=== PATIENT | male | born 1940 | race Hispanic/Latino ===

== ENCOUNTER 2017-04-01 06:04 | Day surgery (SDC) | payer MEDICARE ==
[2017-04-01] MEDS ORDERED: NACL BACTERIOSTATIC INFILTRATI ONE (06:44)
[2017-04-01] MEDS ORDERED: DILAUDID ONE (07:09)
[2017-04-01] MEDS ORDERED: DIPRIVAN 10 MG/ML IV ONE (07:09)
--- NOTE | 2017-04-01 07:36 | Anesthesia Consultation ---
Anesthesia Consult and Med Hx Date of service: 04/01/17 - Airway Anesthetic Teeth Evaluation: Edentulous ROM Head & Neck: Adequate Mental/Hyoid Distance: Adequate Mallampati Class: Class I Intubation Access Assessment: Probably Good - Pulmonary Exam CTA: Yes - Cardiac Exam Cardiac Exam: RRR - Pre-Operative Health Status ASA Pre-Surgery Classification: ASA3 Proposed Anesthetic Plan: General - Pulmonary Hx Smoking: Yes (3 CIGARS PER DAY x50 yrs) COPD: Yes (ON H&P , BUT PT DENIES) Hx Sleep Apnea: No ([place] PRE SCREEN HIGH RISK) - Cardiovascular System Hx Hypertension: Yes (NO MEDS, pt denies) - Central Nervous System Hx Back Pain: Yes (CHRONIC BACK PAIN TO ROX[place] LEGS, nerve stimulator, chronic pain meds) - Endocrine Hx Renal Disease: Yes (BPH, stones, self cath for 2 weeks) Hx Liver Disease: No Hx Non-Insulin Dependent Diabetes: No - Other Systems Hx Cancer: No - Additional Comments Anesthesia Medical History Comments: Slow to wake up per pt's daughter
[2017-04-01] MEDS ORDERED: PEPCID IV NR (08:00)
[2017-04-01] MEDS ORDERED: LACTATED RINGERS 1,000 ML IV SCH (08:00)
[2017-04-01] MEDS ORDERED: ZOFRAN ONE (08:34)
[2017-04-01] MEDS ORDERED: XYLOCAINE MPF 2% ONE (08:34)
[2017-04-01] MEDS ORDERED: ROBINUL ONE (08:34)
[2017-04-01] MEDS ORDERED: ANCEF/STERILE WATER 2 GM/20 ML IV NR (09:00)
[2017-04-01] MEDS ORDERED: MORPHINE IV PRN ×2 (09:03)
[2017-04-01] MEDS ORDERED: ZOFRAN IV PRN (09:03)
--- NOTE | 2017-04-01 09:03 | Post Anesthesia Evaluation ---
- Post Anesthesia Evaluation Patient Participated: Yes Airway Patent: Yes Stable Respiratory Function: Yes Nausea/Vomiting: No Temp > 96.8F: Yes Pain Manageable: Yes Adequeate Hydration: Yes Anesthesia Complications: No Block Receding Appropriately: Not Applicable Patient on Ventilator: No
--- NOTE | 2017-04-01 09:05 | Discharge Summary ---
Short Stay Discharge Plan Activity: other (no straining ) Weight Bearing Status: Full Weight Bearing Diet: low fat, low salt Special Instructions: other (inc fluids ) Follow up with: AJIT MORRIS MD [Primary Care Provider] - 7 Days CATHRYN GANDHI MD [Staff Physician] - 14 Days
--- NOTE | 2017-04-01 09:06 | Post Operative Note ---
Date of procedure: 04/01/17 Pre-op diagnosis: hematuria Post-op diagnosis: same Findings: erythema Procedure: cysto rpgs bx Anesthesia: GETA Surgeon: CATHRYN GANDHI Estimated blood loss: none Pathology: list (bladder) Specimen disposition: to lab Condition: stable Disposition: PACU
--- NOTE | 2017-04-01 09:41 | Operative Report ---
PREOPERATIVE DIAGNOSIS: Hematuria, erythematous areas. POSTOPERATIVE DIAGNOSES: Hematuria, erythematous areas. PROCEDURE: Cystoscopy, biopsy. SURGEON: Ian Roach MD ANESTHESIA: General. FINDINGS: This is a gentleman with hematuria. He has had a previous TURP, has erythematous areas in the right side of the bladder and to the lateral aspect of the right ureteral orifice, he now presents for biopsies. DESCRIPTION OF PROCEDURE: The patient was brought to the operating room and placed on the operating table. Following induction of anesthesia, placed in the lithotomy position, prepped and draped in usual sterile fashion. Actually he was put in the lithotomy position because of his back surgery before he was put to sleep. Cystoscopy showed wide open bladder neck and erythematous areas were biopsied. These looked more inflammatory, but we wanted to be safe. The patient tolerated the procedure well. The area was cauterized. Retrograde showed J hooking right orifice with no persistent filling defects and good drainage. The patient tolerated the procedure well and brought to recovery in stable condition. JOB# [id number] JP/NAM
[2017-04-01 10:19] VITALS: BP 115/71
--- NOTE | 2017-04-02 07:37 | Fluoroscopy Report ---
RETROGRADE PYELOGRAM: History: Urinary frequency. There is adequate filling of the ureters and intrarenal collecting systems with no filling defects or anatomic abnormalities identified. History: No abnormality identified.
== END 2017-04-01 10:15 | disposition home or self-care (01) ==
LOC: OR 06:04
PROVIDERS: ATTEND Urology
DX: N30.21 Other chronic cystitis with hematuria (principal); N40.1 Benign prostatic hyperplasia with lower urinary tract symptoms; R35.0 Frequency of micturition; I10 Essential (primary) hypertension; J44.9 Chronic obstructive pulmonary disease, unspecified; M54.9 Dorsalgia, unspecified; G89.29 Other chronic pain; F41.9 Anxiety disorder, unspecified; F32.9 Major depressive disorder, single episode, unspecified; F17.210 Nicotine dependence, cigarettes, uncomplicated; Z79.899 Other long term (current) drug therapy; Z98.890 Other specified postprocedural states; Z96.643 Presence of artificial hip joint, bilateral; N32.89 Other specified disorders of bladder
CPT/HCPCS: 52204; 74420; 88305; C1758; J1170; J2405; J2704; J7120; Q9967

== ENCOUNTER 2017-04-18 17:13 | Inpatient (IN) | payer MEDICARE ==
[2017-04-18 18:11] LABS: Basophils % (Auto) 0.4 % (0.0-1.8); Eosinophils # (Auto) 0.1 K/mm3 (0.0-0.4); Eosinophils % (Auto) 0.8 % (0.0-4.3); Hematocrit 40.5 % (35.5-45.6); Hemoglobin 13.7 gm/dl (11.8-15.2); Lymphocytes # (Auto) 1.5 K/mm3 (1.2-5.4); Lymphocytes % (Auto) 21.2 % (13.4-35.0); Mean Corpuscular HGB Conc 34 % (32-34); Mean Corpuscular Hemoglobin 33 pg (28-32); Mean Corpuscular Volume 97 fl (84-94); Monocytes # (Auto) 0.5 K/mm3 (0.0-0.8); Monocytes % (Auto) 7.6 % (0.0-7.3); Platelet Count 135 K/mm3 (140-440); Red Blood Count 4.17 M/mm3 (3.65-5.03); Red Cell Distribution Width 13.8 % (13.2-15.2)
[2017-04-18 18:31] LABS: Alanine Aminotransferase 32 units/L (7-56); Albumin 4.1 g/dL (3.9-5); BUN/Creatinine Ratio 27; Blood Urea Nitrogen 19 mg/dL (9-20); Hemolysis Index 4
[2017-04-19] MEDS ORDERED: DILAUDID IV ONE (00:18)
[2017-04-19] MEDS ORDERED: NACL 0.9% 500 ML 500 ML IV ONE (00:18)
--- NOTE | 2017-04-19 00:19 | Emergency Department Report ---
ED General Adult HPI - General Chief complaint: Abdominal Pain Stated complaint: ACUTE GALLBLADDER ATTACK Time Seen by Provider: 04/18/17 23:35 Source: patient, family, RN notes reviewed, old records reviewed Mode of arrival: Wheelchair Limitations: No Limitations - History of Present Illness Initial comments: This is a 76-year-old male who was previously unknown to this provider, presents to the ER with a complaint of gallbladder infection/attack. Reports having had an outpatient CAT scan and an outpatient facility, which suggests cholecystitis by verbal report as per family. Family does not have verbal report written report with them. All the habitus of disc. Patient denies headache, neck pain, chest pain, shortness of breath, testicular pain, urinary symptoms. He has sharp right-sided abdominal pain, it increases with palpation , rest, decreases with range of motion. -: Gradual, days(s) Severity scale (0 -10): 8 Quality: aching Consistency: constant Improves with: rest Worsens with: movement Associated Symptoms: loss of appetite, malaise. denies: confusion, chest pain, cough, diaphoresis, fever/chills, headaches, rash, seizure, shortness of breath , syncope, weakness - Related Data Home Medications Medication Instructions Recorded Confirmed Last Taken Baclofen [Lioresal] 10 mg PO BID 08/14/13 04/19/17 04/01/17 clonazePAM [KlonoPIN] 1 mg PO TID 08/14/13 04/19/17 04/01/17 FLUoxetine HCL [Fluoxetine HCl] 40 mg PO DAILY 03/28/17 04/19/17 03/31/17 Pregabalin [Lyrica] 75 mg PO BID 03/28/17 04/19/17 04/01/17 fentaNYL [Fentanyl] 1 dose INTRADERMA Q72HR 03/28/17 04/19/17 04/01/17 Previous Rx's Medication Instructions Recorded Last Taken Type Methadone [Dolophine] 10 mg PO BID #20 tablet 06/13/15 04/01/17 Rx Oxycodone HCl/Acetaminophen 1 each PO Q8HR PRN #30 tablet 06/13/15 04/01/17 Rx [Percocet 10/325 mg] traZODone [Desyrel] 100 mg PO QHS #20 tablet 06/13/15 04/01/17 Rx Allergies Allergy/AdvReac Type Severity Reaction Status Date / Time No Known Allergies Allergy Verified 12/01/14 13:51 ED Review of Systems ROS: Stated complaint: ACUTE GALLBLADDER ATTACK Other details as noted in HPI Constitutional: malaise, weakness. denies: fever Eyes: denies: eye discharge ENT: denies: epistaxis Respiratory: denies: see HPI, shortness of breath Cardiovascular: denies: chest pain Gastrointestinal: abdominal pain Genitourinary: as per HPI. denies: dysuria, testicular pain Musculoskeletal: denies: myalgia Neurological: weakness Psychiatric: anxiety ED Past Medical Hx - Past Medical History Previous Medical History?: Yes Hx Hypertension: Yes (NO MEDS, pt denies) Hx Liver Disease: No Hx Renal Disease: Yes (BPH, stones, self cath for 2 weeks) Hx Arthritis: Yes Hx COPD: Yes (ON H&P , BUT PT DENIES) Hx HIV: No Additional medical history: high cholesterol. "BLOOD CLOT ON BRAIN", Prostate with polyps - Surgical History Past Surgical History?: Yes Additional Surgical History: Hip BILATERAL. BACK SURGERY X 4. TONSILLECTOMY - Social History Smoking Status: Current Every Day Smoker Substance Use Type: Prescribed - Medications Home Medications: Home Medications Medication Instructions Recorded Confirmed Last Taken Type Baclofen [Lioresal] 10 mg PO BID 08/14/13 04/19/17 04/01/17 History clonazePAM [KlonoPIN] 1 mg PO TID 08/14/13 04/19/17 04/01/17 History Methadone [Dolophine] 10 mg PO BID #20 tablet 06/13/15 04/19/17 04/01/17 Rx Oxycodone HCl/Acetaminophen 1 each PO Q8HR PRN #30 tablet 06/13/15 04/19/1703/08 Rx [Percocet 10/325 mg] traZODone [Desyrel] 100 mg PO QHS #20 tablet 06/13/15 04/19/17 04/01/17 Rx FLUoxetine HCL [Fluoxetine HCl] 40 mg PO DAILY 03/28/17 04/19/17 03/31/17 History Pregabalin [Lyrica] 75 mg PO BID 03/28/17 04/19/17 04/01/17 History fentaNYL [Fentanyl] 1 dose INTRADERMA Q72HR 03/28/17 04/19/17 04/01/17 History ED Physical Exam - General Limitations: No Limitations General appearance: alert, in no apparent distress - Head Head exam: Present: atraumatic, normocephalic - Eye Eye exam: Present: normal appearance, EOMI. Absent: nystagmus - ENT ENT exam: Present: normal exam, normal orophraynx, mucous membranes moist, normal external ear exam - Neck Neck exam: Present: normal inspection, full ROM - Respiratory Respiratory exam: Present: normal lung sounds bilaterally. Absent: respiratory distress - Cardiovascular Cardiovascular Exam: Present: regular rate, normal rhythm, normal heart sounds. Absent: systolic murmur, diastolic murmur, rubs, gallop - GI/Abdominal GI/Abdominal exam: Present: soft, tenderness, normal bowel sounds, other (right flank tenderness, right upper quadrant tenderness.). Absent: distended, guarding, rebound, rigid, pulsatile mass - Rectal Rectal exam: Present: deferred - exam: Present: normal inspection. Absent: testicular tenderness External exam: Present: normal external exam, other (there is no testicular tenderness. There is normal testicular lie bilaterally. There is normal cremasteric reflex bilaterally.). Absent: erythema, swelling, bleeding - Extremities Exam Extremities exam: Present: normal inspection, full ROM, normal capillary refill. Absent: tenderness, pedal edema, joint swelling, calf tenderness - Back Exam Back exam: Present: normal inspection, full ROM. Absent: tenderness, CVA tenderness (R), paraspinal tenderness, vertebral tenderness - Neurological Exam Neurological exam: Present: alert, CN II-XII intact, other (Extraocular movements intact. Tongue midline. No facial droop. Facial sensation intact to light touch in the V1, V2, V3 distribution bilaterally. 5 and 5 strength in 4 extremities.. Sensation is intact to light touch in 4 extremities.). Absent : motor sensory deficit - Psychiatric Psychiatric exam: Present: normal affect, normal mood - Skin Skin exam: Present: warm, dry, intact, normal color. Absent: rash ED Course Vital Signs 04/18/17 04/18/17 04/19/17 17:20 23:27 02:40 Temperature 98 F 97.6 F Pulse Rate 78 57 L Respiratory 18 18 Rate Blood Pressure 114/63 143/86 Blood Pressure 121/56 [Left] O2 Sat by Pulse 97 95 Oximetry 04/19/17 04/19/17 04/19/17 02:45 03:44 03:45 Temperature Pulse Rate 56 L 52 L Respiratory 15 14 Rate Blood Pressure 173/87 173/87 173/87 Blood Pressure [Left] O2 Sat by Pulse 95 94 Oximetry 04/19/17 04/19/17 04/19/17 03:50 04:00 04:16 Temperature Pulse Rate 50 L 50 L Respiratory 18 9 L 11 L Rate Blood Pressure 144/59 122/56 Blood Pressure [Left] O2 Sat by Pulse 94 Oximetry 04/19/17 04/19/17 04/19/17 04:30 04:46 05:00 Temperature Pulse Rate 54 L 53 L 48 L Respiratory 11 L 10 L 14 Rate Blood Pressure 123/51 123/51 123/51 Blood Pressure [Left] O2 Sat by Pulse 89 94 95 Oximetry 04/19/17 04/19/17 04/19/17 05:16 05:30 05:46 Temperature Pulse Rate 49 L 51 L 47 L Respiratory 12 15 11 L Rate Blood Pressure 127/49 131/58 131/58 Blood Pressure [Left] O2 Sat by Pulse 94 96 96 Oximetry 04/19/17 04/19/17 04/19/17 06:00 06:16 06:30 Temperature Pulse Rate 70 55 L 57 L Respiratory 23 17 22 Rate Blood Pressure 131/58 100/84 100/84 Blood Pressure [Left] O2 Sat by Pulse 90 94 93 Oximetry 04/19/17 04/19/17 04/19/17 06:46 07:00 07:16 Temperature Pulse Rate 51 L 57 L 58 L Respiratory 18 16 15 Rate Blood Pressure 131/58 131/58 148/42 Blood Pressure [Left] O2 Sat by Pulse 93 95 94 Oximetry 04/19/17 04/19/17 08:22 08:40 Temperature Pulse Rate 46 L Respiratory 18 14 Rate Blood Pressure 123/53 Blood Pressure [Left] O2 Sat by Pulse 94 Oximetry - Reevaluation(s) Reevaluation #1: 04/19/17 04:[address] scan of the abdomen and pelvis suggest cholecystitis. Case presented to the general surgeon on-call, Dr. Kim, who requests medical admission given her advanced age, medical comorbidities. Case presented to the Hospital physician, Dr Allen, who accepts the patient to the medical service. ED Medical Decision Making - Lab Data Result diagrams: 04/20/17 03:45 04/20/17 03:45 Vital Signs 04/18/17 04/18/17 17:20 23:27 Temperature 98 F 97.6 F Pulse Rate 78 57 L Respiratory 18 18 Rate Blood Pressure 114/63 Blood Pressure 121/56 [Left] O2 Sat by Pulse 97 95 Oximetry Lab Results 04/18/17 04/18/17 Range/Units 17:59 17:59 WBC 7.0 (4.5-11.0) K/mm3 RBC 4.17 (3.65-5.03) M/mm3 Hgb 13.7 (11.8-15.2) gm/dl Hct 40.5 (35.5-45.6) % MCV 97 H (84-94) fl MCH 33 H (28-32) pg MCHC 34 (32-34) % RDW 13.8 (13.2-15.2) % Plt Count 135 L (140-440) K/mm3 Lymph % (Auto) 21.2 (13.4-35.0) % [place] % (Auto) 7.6 H (0.0-7.3) % Eos % (Auto) 0.8 (0.0-4.3) % Baso % (Auto) 0.4 (0.0-1.8) % Lymph # 1.5 (1.2-5.4) K/mm3 [place] # 0.5 (0.0-0.8) K/mm3 Eos # 0.1 (0.0-0.4) K/mm3 Baso # 0.0 (0.0-0.1) K/mm3 Seg Neutrophils % 70.0 (40.0-70.0) % Seg Neutrophils # 4.9 (1.8-7.7) K/mm3 Sodium 138 (137-145) mmol/L Potassium 4.5 (3.6-5.0) mmol/L Chloride 94.8 L (98-107) mmol/L Carbon Dioxide 25 (22-30) mmol/L Anion Gap 23 mmol/L BUN 19 (9-20) mg/dL Creatinine 0.7 L (0.8-1.5) mg/dL Estimated GFR > 60 ml/min BUN/Creatinine Ratio 27 % Glucose 108 H (75-100) mg/dL Calcium 9.0 (8.4-10.2) mg/dL Total Bilirubin 1.50 H (0.1-1.2) mg/dL AST 31 (5-40) units/L ALT 32 (7-56) units/L Alkaline Phosphatase 126 (35-129) units/L Total Protein 7.1 (6.3-8.2) g/dL Albumin 4.1 (3.9-5) g/dL Albumin/Globulin Ratio 1.4 % - Radiology Data Radiology results: pending, report reviewed Referring Physician: JEANIE DE ANDA Patient Name: JOSE ALBERTO GALARZA Date of : 1940 Sex: Male Report Date: 2017-04-18 Report Status: Finalized Findings [facility] [address] [place] [address] Ultrasound Report Signed Patient: JOSE ALBERTO GALARZA MR#: [id number] : 1940 Acct:[id number] Age/Sex: 76 / M ADM Date: 04/18/17 Loc: ED Attending Dr: Ordering Physician: JEANIE DE ANDA MD Date of Service: 04/19/17 Procedure(s): US abdomen limited Accession Number(s): [id number] cc: JEANIE DE ANDA MD FINAL REPORT PROCEDURE: US ABDOMEN LIMITED TECHNIQUE: Real-time sonography in multiple planes of the gallbladder fossa and CBD with imaging of the adjacent liver, pancreas, and right kidney was performed with image documentation. CPT 30860 HISTORY: ruq pain COMPARISON: No prior studies are available for comparison. FINDINGS: Liver: Normal size and echotexture with no evidence of cystic or solid mass lesion. Gallbladder: There is cholelithiasis is. Gallbladder wall is thickened at 5.6 millimeters. There is no pericholecystic fluid.. There is a mass in the gallbladder wall measuring 2.3 centimeters. This could be sludge or irregular polyp. Neoplasm cannot be excluded. Intrahepatic bile ducts: Normal . Extrahepatic bile ducts: Common bile duct measures 7.5 millimeters in diameter.. Pancreas: Normal as visualized with suboptimal depiction of the pancreatic tail. Right kidney: Normal echotexture. No focal renal mass, calculus, or hydronephrosis. Other: No free fluid. IMPRESSION: There is cholelithiasis is. Gallbladder wall is thickened at 5.6 millimeters. There is no pericholecystic fluid.. There is a mass in the gallbladder wall measuring 2.3 centimeters. This could be sludge or irregular polyp. Neoplasm cannot be excluded. Common bile duct measures 7.5 millimeters in diameter.. Transcribed By: CO Dictated By: JACKY MALIN MD Electronically Authenticated By: JACKY MALIN MD Signed Date/Time: 04/18/172352 DD/ 52 TD/TT: 04/18/172352 - Medical Decision Making Differential diagnosis, including but not limited to: Urinary tract infection, cholecystitis, intra-abdominal infection Assessment and plan: 76-year-old male with a verbal report from family of gallbladder infection. He is afebrile with reassuring vital signs but very tender. Right upper quadrant ultrasound and CT scan of the abdomen and pelvis to my interpretation appeared to demonstrate thickened edematous gallbladder, with pericholecystic fluid. Of note, there has been a long delay and patient's disposition because the overnight radiology [facility], [place], has been backed up in their interpretations. We have contacted the group multiple times to get an interpretation and read, but they state that they are swamped. Patient will be treated empirically with Zosyn, IV fluids and pain medication. Assuming they're full report corroborates my suspicion, we will discuss with general surgery on-call. Critical care attestation.: If time is entered above; I have spent that time in minutes in the direct care of this critically ill patient, excluding procedure time. ED Disposition Clinical Impression: Cholecystitis Disposition: OP ADMIT IP TO THIS HOSP Is pt being admited?: Yes Condition: Good
[2017-04-19] MEDS ORDERED: NACL ONE (01:23)
--- NOTE | 2017-04-19 03:56 | Ultrasound Report ---
FINAL REPORT PROCEDURE: US ABDOMEN LIMITED TECHNIQUE: Real-time sonography in multiple planes of the gallbladder fossa and CBD with imaging of the adjacent liver, pancreas, and right kidney was performed with image documentation. CPT 43945 HISTORY: ruq pain COMPARISON: No prior studies are available for comparison. FINDINGS: Liver: Normal size and echotexture with no evidence of cystic or solid mass lesion. Gallbladder: There is cholelithiasis is. Gallbladder wall is thickened at 5.6 millimeters. There is no pericholecystic fluid.. There is a mass in the gallbladder wall measuring 2.3 centimeters. This could be sludge or irregular polyp. Neoplasm cannot be excluded. Intrahepatic bile ducts: Normal . Extrahepatic bile ducts: Common bile duct measures 7.5 millimeters in diameter.. Pancreas: Normal as visualized with suboptimal depiction of the pancreatic tail. Right kidney: Normal echotexture. No focal renal mass, calculus, or hydronephrosis. Other: No free fluid. IMPRESSION: There is cholelithiasis is. Gallbladder wall is thickened at 5.6 millimeters. There is no pericholecystic fluid.. There is a mass in the gallbladder wall measuring 2.3 centimeters. This could be sludge or irregular polyp. Neoplasm cannot be excluded. Common bile duct measures 7.5 millimeters in diameter..
[2017-04-19 04:01] LABS: Bilirubin,Urine NEG (Negative); Blood,Urine LG (Negative); Color,Urine Amber (Yellow); Mucus,Urine 3+ /HPF; Nitrite,Urine NEG (Negative); Urobilinogen,Urine < 2.0 mg/dL (<2.0)
[2017-04-19 04:03] LABS: WBC,Urine > 182.0 /HPF (0.0-6.0)
--- NOTE | 2017-04-19 04:09 | Cat Scan Report ---
FINAL REPORT PROCEDURE: CT ABDOMEN PELVIS W CON TECHNIQUE: Computerized axial tomography of the abdomen and pelvis was performed after the IV injection of iodinated nonionic contrast. HISTORY: abd pain COMPARISON: No prior studies are available for comparison. FINDINGS: Visualized lower thorax: No significant abnormality. Liver: Normal size and attenuation. Spleen: Normal size and attenuation. Gallbladder and biliary system: The gallbladder is distended and wall is thickened. No discrete stones are seen. Cholecystitis is suspected. Bile ducts are normal in caliber.. Pancreas: Normal. Adrenals: Normal. Kidneys: Normal. GI tract: There is thickening of the proximal duodenum suggesting duodenitis. There is no mass or obstruction. There is moderate stool in the colon. There is no colitis or diverticulitis. The appendix is normal.. Lymph nodes and mesentery: Normal. Vasculature: There is an aortic aneurysm measuring approximately 3.3 centimeters in diameter. 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 Bladder: Normal. Reproductive organs: Normal. Peritoneum: There is no ascites, free air, abscess or adenopathy.. Musculoskeletal structures: There has been extensive lower back surgery. There is hardware transfixing L3, L4 and L5 and S1. 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 The hardware is intact.. Other: None. IMPRESSION: The gallbladder is distended and wall is thickened. No discrete stones are seen. Cholecystitis is suspected. Bile ducts are normal in caliber.. There is thickening of the proximal duodenum suggesting duodenitis. There is no mass or obstruction. There is moderate stool in the colon. There is no colitis or diverticulitis. The appendix is normal.. There is an aortic aneurysm measuring approximately 3.3 centimeters in diameter. 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 There is no ascites, free air, abscess or adenopathy.. There has been extensive lower back surgery. There is hardware transfixing L3, L4 and L5 and S1. 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 The hardware is intact.
[2017-04-19] MEDS ORDERED: ZOSYN/NS 4.5GM/100ML 4.5 GM/100 ML VIAL IV ONE (04:16)
--- NOTE | 2017-04-19 06:13 | History and Physical Report ---
History of Present Illness Date of examination: 04/19/17 Chief complaint: Abdominal pain History of present illness: This is a 76-year-old male with history of COPD and chronic back pain on pain stimulator, methadone, Baclofen and Oxycodone who was brought to the ED with a complaint of gallbladder infection/attack. Reports having had an outpatient CAT scan and an outpatient facility, which suggests cholecystitis by verbal report as per family. Family does not have verbal report written report with them. All the of disc. Patient denies headache, neck pain, chest pain, shortness of breath, testicular pain, urinary symptoms. He has sharp right- sided abdominal pain, it increases with palpation, rest, decreases with range of motion. Past History Past Medical History: arthritis, COPD, hypertension, other ( high cholesterol. "BLOOD CLOT ON BRAIN", Prostate with polyps, BPH, stones, self cath for 2 weeks) Past Surgical History: Other (Hip BILATERAL. BACK SURGERY X 4. TONSILLECTOMY) Social history: smoking, full code. denies: alcohol abuse Family history: no significant family history Medications and Allergies Allergies Allergy/AdvReac Type Severity Reaction Status Date / Time No Known Allergies Allergy Verified 12/01/14 13:51 Home Medications Medication Instructions Recorded Confirmed Last Taken Type Baclofen [Lioresal] 10 mg PO BID 08/14/13 04/19/17 04/01/17 History clonazePAM [KlonoPIN] 1 mg PO TID 08/14/13 04/19/17 04/01/17 History Methadone [Dolophine] 10 mg PO BID #20 tablet 06/13/15 04/19/17 04/01/17 Rx Oxycodone HCl/Acetaminophen 1 each PO Q8HR PRN #30 tablet 06/13/15 04/19/1703/08 Rx [Percocet 10/325 mg] traZODone [Desyrel] 100 mg PO QHS #20 tablet 06/13/15 04/19/17 04/01/17 Rx FLUoxetine HCL [Fluoxetine HCl] 40 mg PO DAILY 03/28/17 04/19/17 03/31/17 History Pregabalin [Lyrica] 75 mg PO BID 03/28/17 04/19/17 04/01/17 History fentaNYL [Fentanyl] 1 dose INTRADERMA Q72HR 03/28/17 04/19/17 04/01/17 History Review of Systems All systems: negative (loss of appetite, malaise. denies: confusion, chest pain , cough, diaphoresis, fever/chills, headaches, rash, seizure, shortness of breath, syncope, weakness) Exam - Physical Exam Narrative exam: General: the patient is awake alert oriented to time place and person. no evidence of acute distress HEENT: Head is atraumatic normocephalic,. Pupils equal round reactive to light and accommodation, extraocular movements intact. Oral mucosa moist. Oropharynx clear. No pharyngeal erythema or tonsillar exudate. Neck: Supple no JVD no thyromegaly or lymphadenopathy. Heart: Regular rate and rhythm no murmurs or gallops. S1 and S2 normal. PMI not displaced. Lungs: Clear to auscultation bilaterally. No rales rhonchi wheezing. Nonlabored breathing. Normal chest wall expansion. Abdomen: soft, moderate right upper quadrant tenderness, right flank tenderness , no guarding, rebound, rigidity, pulsatile mass Normoactive bowel sounds. No hepatosplenomegaly. No abdominal masses or bruit appreciated. Extremities: No cyanosis/clubbing/ edema. Musculoskeletal: Normal range of movement all joints. No obvious deformity or tenderness to palpation. Normal muscle tone. Back: Normal alignment. No step-off. No midline or paraspinal tenderness. No CVA tenderness. Neurological: Grossly intact and nonfocal. No cerebellar signs. Cranial nerves II-12 grossly intact. Strength 5 out of 5 all 4 extremities. Sensations grossly intact. Skin: Warm and dry no rashes or bruises. Psychiatric: Normal mood. Appropriate affect and good insight and judgment. Vascular system: No lymphadenopathy. Distal pulses 2+ bilaterally. - Constitutional Vitals: Temp Pulse Resp BP Pulse Ox 97.6 F 51 L 15 131/58 96 04/18/17 23:27 04/19/17 05:30 04/19/17 05:30 04/19/17 05:30 04/19/17 05:30 Results - Labs CBC & Chem 7: 04/18/17 17:59 04/18/17 17:59 Labs: Laboratory Last Values WBC 7.0 K/mm3 (4.5-11.0) 04/18/17 17:59 RBC 4.17 M/mm3 (3.65-5.03) 04/18/17 17:59 Hgb 13.7 gm/dl (11.8-15.2) 04/18/17 17:59 Hct 40.5 % (35.5-45.6) 04/18/17 17:59 MCV 97 fl (84-94) H 04/18/17 17:59 MCH 33 pg (28-32) H 04/18/17 17:59 MCHC 34 % (32-34) 04/18/17 17:59 RDW 13.8 % (13.2-15.2) 04/18/17 17:59 Plt Count 135 K/mm3 (140-440) L 04/18/17 17:59 Lymph % (Auto) 21.2 % (13.4-35.0) 04/18/17 17:59 [place] % (Auto) 7.6 % (0.0-7.3) H 04/18/17 17:59 Eos % (Auto) 0.8 % (0.0-4.3) 04/18/17 17:59 Baso % (Auto) 0.4 % (0.0-1.8) 04/18/17 17:59 Lymph # 1.5 K/mm3 (1.2-5.4) 04/18/17 17:59 [place] # 0.5 K/mm3 (0.0-0.8) 04/18/17 17:59 Eos # 0.1 K/mm3 (0.0-0.4) 04/18/17 17:59 Baso # 0.0 K/mm3 (0.0-0.1) 04/18/17 17:59 Seg Neutrophils % 70.0 % (40.0-70.0) 04/18/17 17:59 Seg Neutrophils # 4.9 K/mm3 (1.8-7.7) 04/18/17 17:59 Sodium 138 mmol/L (137-145) 04/18/17 17:59 Potassium 4.5 mmol/L (3.6-5.0) 04/18/17 17:59 Chloride 94.8 mmol/L (98-107) L 04/18/17 17:59 Carbon Dioxide 25 mmol/L (22-30) 04/18/17 17:59 Anion Gap 23 mmol/L 04/18/17 17:59 BUN 19 mg/dL (9-20) 04/18/17 17:59 Creatinine 0.7 mg/dL (0.8-1.5) L 04/18/17 17:59 Estimated GFR > 60 ml/min 04/18/17 17:59 BUN/Creatinine Ratio 27 % 04/18/17 17:59 Glucose 108 mg/dL (75-100) H 04/18/17 17:59 Calcium 9.0 mg/dL (8.4-10.2) 04/18/17 17:59 Total Bilirubin 1.50 mg/dL (0.1-1.2) H 04/18/17 17:59 AST 31 units/L (5-40) 04/18/17 17:59 ALT 32 units/L (7-56) 04/18/17 17:59 Alkaline Phosphatase 126 units/L (35-129) 04/18/17 17:59 Total Protein 7.1 g/dL (6.3-8.2) 04/18/17 17:59 Albumin 4.1 g/dL (3.9-5) 04/18/17 17:59 Albumin/Globulin Ratio 1.4 % 04/18/17 17:59 Urine Color Gale (Yellow) 04/19/17 00:48 Urine Turbidity Slightly-cloudy (Clear) 04/19/17 00:48 Urine pH 5.0 (5.0-7.0) 04/19/17 00:48 Ur Specific [place] 1.021 (1.003-1.030) 04/19/17 00:48 Urine Protein 30 mg/dl mg/dL (Negative) 04/19/17 00:48 Urine Glucose (UA) Neg mg/dL (Negative) 04/19/17 00:48 Urine Ketones Neg mg/dL (Negative) 04/19/17 00:48 Urine Blood Lg (Negative) 04/19/17 00:48 Urine Nitrite Neg (Negative) 04/19/17 00:48 Urine Bilirubin Neg (Negative) 04/19/17 00:48 Urine Urobilinogen < 2.0 mg/dL (<2.0) 04/19/17 00:48 Ur Leukocyte Esterase Lg (Negative) 04/19/17 00:48 Urine WBC (Auto) > 182.0 /HPF (0.0-6.0) H 04/19/17 00:48 Urine RBC (Auto) 23.0 /HPF (0.0-6.0) 04/19/17 00:48 Urine Mucus 3+ /HPF 04/19/17 00:48 - Imaging and Cardiology Imaging and Cardiology: CT abdomen and pelvis with contrast suggestive of cystitis, aortic aneurysm at 3.3 cm Ultrasound showing gallbladder wall thickened at 5.6 cm no pericholecystic fluid sludge in the gallbladder Assessment and Plan Assessment and plan: Assessment and plan - * Acute cholecystitis * Hyperbilirubinemia * Hypertension * COPD * Constipation * Duodenitis Plan - Admit the patient to medical surgical floor with telemetry Nothing by mouth Gen. surgery consulted for further evaluation and management Empiric antibiotics in the form of Levaquin Continue home medications When necessary bronchodilators, monitor patient for COPD exacerbation. IV steroids and aggressive bronchodilators if needed for COPD exacerbation Monitor CBC and electrolytes Replace electrolytes when necessary as per protocol DVT GI prophylaxis as ordered Monitor and follow the patient closely Tobacco abuse counselled on smoking cessation VTE prophylaxis?: Chemical, Mechanical Plan of care discussed with patient/family: Yes
[2017-04-19] MEDS ORDERED: ZOFRAN IV PRN (06:24)
[2017-04-19] MEDS ORDERED: DULCOLAX PR PRN (06:24)
[2017-04-19] MEDS ORDERED: MILK OF MAGNESIA PO PRN (06:24)
[2017-04-19] MEDS ORDERED: PROVENTIL IH PRN (06:24)
[2017-04-19] MEDS ORDERED: TYLENOL PO PRN (06:24)
[2017-04-19 07:06] LABS: Basophils % (Auto) 0.7 % (0.0-1.8); Eosinophils # (Auto) 0.1 K/mm3 (0.0-0.4); Eosinophils % (Auto) 2.4 % (0.0-4.3); Hematocrit 38.8 % (35.5-45.6); Hemoglobin 12.6 gm/dl (11.8-15.2); Lymphocytes # (Auto) 1.4 K/mm3 (1.2-5.4); Lymphocytes % (Auto) 26.5 % (13.4-35.0); Mean Corpuscular HGB Conc 33 % (32-34); Mean Corpuscular Hemoglobin 32 pg (28-32); Mean Corpuscular Volume 99 fl (84-94); Monocytes # (Auto) 0.6 K/mm3 (0.0-0.8); Monocytes % (Auto) 10.6 % (0.0-7.3); Platelet Count 107 K/mm3 (140-440); Red Blood Count 3.92 M/mm3 (3.65-5.03); Red Cell Distribution Width 13.9 % (13.2-15.2)
[2017-04-19] MEDS ORDERED: ATIVAN IV PRN (07:30)
--- NOTE | 2017-04-19 07:33 | Event Note ---
Date: 04/19/17 Admitting today Pt seen and examined. Daughter Jeanette at bedside. Apr 01, 2017, Dr. Roach did bladder bx to remove polyp, noncancerous per family. Patient started experience n/v and RLQ abd pains and went to see Dr. Roach yesterday. CTap ordered. Dr. Roach called his cell phone and told him to go to ED because of his gallbladder. Patient being treated for acute cholecystitis. On exam, RLQ +mann sign and very tender; therefore, I cancelled all oral medications, pt should be strict NPO. Which I changed oral clonazepam to iv ativan for anxiety, Stopped oral methadone/baclofen/prozac/ lyrica/oxycodone, pt already on iv morphine. Await surgery recommendation. Continue iv abx and bowel rest, ivf.
[2017-04-19 07:43] LABS: Alanine Aminotransferase 18 units/L (7-56); Albumin 3.3 g/dL (3.9-5); BUN/Creatinine Ratio 20; Blood Urea Nitrogen 16 mg/dL (9-20); Calcium 8.5 mg/dL (8.4-10.2); Chol/HDL Ratio 3.51 %; HDL Cholesterol 35 mg/dL (40-59); Hemolysis Index 15; LDL Cholesterol,Direct 71 mg/dL (50-130)
[2017-04-19] MEDS ORDERED: MORPHINE ONE (07:43)
[2017-04-19] MEDS: MORPHINE IV PRN ×4 (08:22→23:18)
[2017-04-19] MEDS ORDERED: DOLOPHINE PO SCH (10:00)
[2017-04-19] MEDS ORDERED: DURAGESIC TD SCH (10:00)
[2017-04-19] MEDS ORDERED: LOVENOX SUB-Q SCH (10:00)
[2017-04-19] MEDS ORDERED: LYRICA PO SCH (10:00)
[2017-04-19] MEDS ORDERED: PROzac PO SCH (10:00)
[2017-04-19] MEDS ORDERED: LIORESAL PO SCH (10:00)
[2017-04-19] MEDS: D5NS 1,000 ML IV SCH ×2 (10:57→20:12)
--- NOTE | 2017-04-19 14:06 | Progress Note ---
Assessment and Plan Full consult dictated. History of Present Illness Date of examination: 04/19/17 Chief complaint: Abdominal pain History of present illness: This is a 76-year-old male with history of COPD and chronic back pain on pain stimulator, methadone, Baclofen and Oxycodone who was brought to the ED with a complaint of gallbladder infection/attack. Reports having had an outpatient CAT scan and an outpatient facility, which suggests cholecystitis by verbal report as per family. Family does not have verbal report written report with them. All the of disc. Patient denies headache, neck pain, chest pain, shortness of breath, testicular pain, urinary symptoms. He has sharp right- sided abdominal pain, it increases with palpation, rest, decreases with range of motion. Past History Past Medical History: arthritis, COPD, hypertension, other ( high cholesterol. "BLOOD CLOT ON BRAIN", Prostate with polyps, BPH, stones, self cath for 2 weeks) Past Surgical History: Other (Hip BILATERAL. BACK SURGERY X 4. TONSILLECTOMY) Social history: smoking, full code. denies: alcohol abuse Family history: no significant family history r/o acute GB rec - NPO IV antibiotics will folllow Selected Entries 04/19/17 09:41 Temperature 98.5 F Pulse Rate 48 L Respiratory 16 Rate Blood Pressure 135/54 Laboratory Tests 04/19/17 04/19/17 06:48 06:48 WBC 5.2 Hgb 12.6 Hct 38.8 Sodium 139 Potassium 4.0 Chloride 99.0 Carbon Dioxide 25 BUN 16 Creatinine 0.8 Total Bilirubin 1.70 H AST 20 ALT 18 Alkaline Phosphatase 104 Objective Vital Signs - 12hr 04/19/17 04/19/17 04/19/17 02:40 02:45 03:44 Temperature Pulse Rate 56 L Respiratory 15 Rate Blood Pressure 143/86 173/87 173/87 O2 Sat by Pulse 95 Oximetry 04/19/17 04/19/17 04/19/17 03:45 03:50 04:00 Temperature Pulse Rate 52 L 50 L Respiratory 14 18 9 L Rate Blood Pressure 173/87 144/59 O2 Sat by Pulse 94 Oximetry 04/19/17 04/19/17 04/19/17 04:16 04:30 04:46 Temperature Pulse Rate 50 L 54 L 53 L Respiratory 11 L 11 L 10 L Rate Blood Pressure 122/56 123/51 123/51 O2 Sat by Pulse 94 89 94 Oximetry 04/19/17 04/19/17 04/19/17 05:00 05:16 05:30 Temperature Pulse Rate 48 L 49 L 51 L Respiratory 14 12 15 Rate Blood Pressure 123/51 127/49 131/58 O2 Sat by Pulse 95 94 96 Oximetry 04/19/17 04/19/17 04/19/17 05:46 06:00 06:16 Temperature Pulse Rate 47 L 70 55 L Respiratory 11 L 23 17 Rate Blood Pressure 131/58 131/58 100/84 O2 Sat by Pulse 96 90 94 Oximetry 04/19/17 04/19/17 04/19/17 06:30 06:46 07:00 Temperature Pulse Rate 57 L 51 L 57 L Respiratory 22 18 16 Rate Blood Pressure 100/84 131/58 131/58 O2 Sat by Pulse 93 93 95 Oximetry 04/19/17 04/19/17 04/19/17 07:16 08:22 08:40 Temperature Pulse Rate 58 L 46 L Respiratory 15 18 14 Rate Blood Pressure 148/42 123/53 O2 Sat by Pulse 94 94 Oximetry 04/19/17 09:41 Temperature 98.5 F Pulse Rate 48 L Respiratory 16 Rate Blood Pressure 135/54 O2 Sat by Pulse 96 Oximetry - Labs 04/19/17 06:48 04/19/17 06:48 Diabetes panel 04/18/17 04/19/17 04/19/17 Range/Units 17:59 06:48 06:48 Sodium 138 139 (137-145) mmol/L Potassium 4.5 4.0 (3.6-5.0) mmol/L Chloride 94.8 L 99.0 (98-107) mmol/L Carbon Dioxide 25 25 (22-30) mmol/L BUN 19 16 (9-20) mg/dL Creatinine 0.7 L 0.8 (0.8-1.5) mg/dL Glucose 108 H 89 (75-100) mg/dL Hemoglobin A1c 5.4 (4-6) % Calcium 9.0 8.5 (8.4-10.2) mg/dL AST 31 20 (5-40) units/L ALT 32 18 (7-56) units/L Alkaline Phosphatase 126 104 (35-129) units/L Total Protein 7.1 6.7 (6.3-8.2) g/dL Albumin 4.1 3.3 L (3.9-5) g/dL Triglycerides 86 (2-149) mg/dL HDL Cholesterol 35 L (40-59) mg/dL Calcium panel 04/18/17 04/19/17 Range/Units 17:59 06:48 Calcium 9.0 8.5 (8.4-10.2) mg/dL Albumin 4.1 3.3 L (3.9-5) g/dL Pituitary panel 04/18/17 04/19/17 Range/Units 17:59 06:48 Sodium 138 139 (137-145) mmol/L Potassium 4.5 4.0 (3.6-5.0) mmol/L Chloride 94.8 L 99.0 (98-107) mmol/L Carbon Dioxide 25 25 (22-30) mmol/L BUN 19 16 (9-20) mg/dL Creatinine 0.7 L 0.8 (0.8-1.5) mg/dL Glucose 108 H 89 (75-100) mg/dL Calcium 9.0 8.5 (8.4-10.2) mg/dL Adrenal panel 04/18/17 04/19/17 Range/Units 17:59 06:48 Sodium 138 139 (137-145) mmol/L Potassium 4.5 4.0 (3.6-5.0) mmol/L Chloride 94.8 L 99.0 (98-107) mmol/L Carbon Dioxide 25 25 (22-30) mmol/L BUN 19 16 (9-20) mg/dL Creatinine 0.7 L 0.8 (0.8-1.5) mg/dL Glucose 108 H 89 (75-100) mg/dL Calcium 9.0 8.5 (8.4-10.2) mg/dL Total Bilirubin 1.50 H 1.70 H (0.1-1.2) mg/dL AST 31 20 (5-40) units/L ALT 32 18 (7-56) units/L Alkaline Phosphatase 126 104 (35-129) units/L Total Protein 7.1 6.7 (6.3-8.2) g/dL Albumin 4.1 3.3 L (3.9-5) g/dL
[2017-04-19] MEDS: ZOSYN/NS 4.5GM/100ML 4.5 GM/100 ML VIAL IV SCH ×2 (15:30→22:13)
[2017-04-19] MEDS ORDERED: DESYREL PO SCH (22:00)
[2017-04-19] MEDS: PEPCID IV SCH (22:13)
[2017-04-20] MEDS: MORPHINE IV PRN ×5 (04:26→22:21)
[2017-04-20 04:43] LABS: Basophils % (Auto) 0.7 % (0.0-1.8); Eosinophils # (Auto) 0.2 K/mm3 (0.0-0.4); Eosinophils % (Auto) 3.6 % (0.0-4.3); Hematocrit 35.7 % (35.5-45.6); Lymphocytes # (Auto) 1.4 K/mm3 (1.2-5.4); Lymphocytes % (Auto) 31.2 % (13.4-35.0); Mean Corpuscular HGB Conc 34 % (32-34); Mean Corpuscular Hemoglobin 33 pg (28-32); Mean Corpuscular Volume 98 fl (84-94); Monocytes # (Auto) 0.3 K/mm3 (0.0-0.8); Monocytes % (Auto) 7.4 % (0.0-7.3); Platelet Count 124 K/mm3 (140-440); Red Blood Count 3.64 M/mm3 (3.65-5.03); Red Cell Distribution Width 13.4 % (13.2-15.2)
[2017-04-20 05:05] LABS: Alanine Aminotransferase 14 units/L (7-56); Albumin 2.9 g/dL (3.9-5); BUN/Creatinine Ratio 14; Blood Urea Nitrogen 10 mg/dL (9-20); Calcium 8.1 mg/dL (8.4-10.2); Hemolysis Index 66; Lipase 24 units/L (13-60)
--- NOTE | 2017-04-20 05:07 | Consultation ---
REASON FOR CONSULTATION: Rule out acute cholecystitis. HISTORY OF PRESENT ILLNESS: The patient is a 76-year-old gentleman, who presented to Emergency Room with right upper quadrant abdominal pain, accompanied by nausea and vomiting and states he is now. PAST MEDICAL HISTORY: Pertinent for chronic back pain as well as history of kidney stones. PAST SURGICAL HISTORY: Status post four back surgeries. Also, bilateral hip replacements and lithotripsy for kidney stones as well as T and A. ALLERGIES: No known allergies. MEDICATIONS: Include oxycodone, Klonopin and others. FAMILY HISTORY: Breast cancer. SOCIAL HISTORY: Quit drinking approximately 40 years ago. Smokes half a pack a day for approximately 53 years. REVIEW OF SYSTEMS: Noncontributory. PHYSICAL EXAMINATION: GENERAL: At this time reveals the patient to be awake, alert, cooperative, in mild discomfort, but no acute distress. HEENT: Pupils are equal and reactive to light and accommodation. Sclerae are nonicteric. ABDOMEN: Examination of the abdomen reveals mild right upper quadrant tenderness. No rebound or guarding noted at this time. Bowel sounds are present, somewhat hypoactive. LABORATORY DATA: Lab work at present includes CBC, which shows white count of 5.2, H and H is 12.6 and 38.8. Electrolytes are essentially within normal limits. LFTs are also within normal limits including an AST of 20, ALT of 18 and alkaline phosphatase of 104. Total bilirubin is just slightly elevated at 1.7. Amylase and lipase are not on chart. CT scan and gallbladder ultrasound have been performed, which I have reviewed with the radiologist. A gallbladder ultrasound shows some gallstones and the gallbladder wall is slightly thickened at 5.6 mm, but no pericholecystic fluid is described. Essentially, cholelithiasis with borderline possible cholecystitis. CT scan shows once again a slightly distended gallbladder with thickened wall, possibly some mild duodenitis and also confirmation of the patient's extensive back surgery. IMPRESSION: At this time is that of a 76-year-old gentleman, rule out acute cholecystitis. RECOMMENDATIONS: Keep the patient n.p.o. at present. Continue the IV Zosyn as you are doing. We will repeat lab work in the morning including CBC, CMP, amylase and lipase and we will monitor with you clinically. Thank you very much for consultation. JOB# [id number] FP/NTS
[2017-04-20] MEDS: D5NS 1,000 ML IV SCH ×2 (05:59→15:57)
[2017-04-20] MEDS: ZOSYN/NS 4.5GM/100ML 4.5 GM/100 ML VIAL IV SCH ×3 (06:29→22:20)
[2017-04-20] MEDS: PEPCID IV SCH (09:32)
--- NOTE | 2017-04-20 11:30 | Progress Note ---
Assessment and Plan Assessment and plan: Patient is 76-year-old man with history of hypertension, dyslipidemia, arthritis , COPD, BPH, self bladder catheterization 2 weeks, severe chronic low back pain status post 4 back surgeries with a nonfunctional stimulator implantated in his back and tobacco dependency who presents with right lower side abdominal pains and prior nausea vomiting. Apr 01, 2017, Dr. Roach did bladder bx to remove polyp, noncancerous per family. Patient started experience n/v and RLQ abd pains and went to see Dr. Roach yesterday. CTap ordered. Dr. Roach called his cell phone and told him to go to ED because of his gallbladder. Patient being treated for acute cholecystitis. On exam, RLQ +mann sign and very tender; therefore, I cancelled all oral medications, pt should be strict NPO. Which I changed oral clonazepam to iv ativan for anxiety, Stopped oral methadone/baclofen/prozac/lyrica/oxycodone, pt already on iv morphine. Await surgery recommendation. Continue iv abx and bowel rest, ivf. 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 Abdominal ultrasound report is cholelithiasis, gallbladder wall thickening. 6 mm, there is no pericholecystic fluid, there is a mass in the gallbladder wall measuring 2.3 cm, this could be sludge or irregular polyp, neoplasm cannot be excluded, common bowel duct measures 7.5 mm in diameter. 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 Surgeon is following History Interval history: Patient was seen and examined. Follow-up on current diagnosis/abdominal pain which is much better and no nausea vomiting. Overnight uneventful. Patient denies any chest pain, shortness breath, nausea/vomiting or severe headaches. Imaging, nursing note, chart, labs and old chart reviewed. Discussed with patient. Hospitalist Physical - Physical exam Narrative exam: GEN: WDWN, NAD, AWAKE, ALERT, ORIENTATED HEENT: NCAT, EOMI, PERRL, OP Clear NECK: supple, no adenopathy, no thyromegaly, no JVD CVS/HEART: RRR, NORMAL S1S2, NO JVD, pulses present bilaterally CHEST/LUNGS: CTA B, Symmetrical chest expansion, good air entry bilaterally GI/Abdomen: soft, nondistended, right lower quadrant abdominal tenderness is resolving, good bowel sounds, no guarding or rebound /Bladder: no suprapubic tenderness, no CVA or paraspinal tenderness EXT/Skin: no c/c/e, no obvious rash MSK: FROM x 4 Neuro: CN 2-12 grossly intact, no new focal deficits Psych: calm - Constitutional Vitals: Temp Pulse Resp BP Pulse Ox 98.0 F 41 L 18 137/47 98 04/20/17 07:41 04/20/17 07:41 04/20/17 07:41 04/20/17 07:41 04/20/17 09:09 Results - Labs CBC & Chem 7: 04/20/17 03:45 04/20/17 03:45 Labs: Laboratory Last Values WBC 4.4 K/mm3 (4.5-11.0) L 04/20/17 03:45 RBC 3.64 M/mm3 (3.65-5.03) L 04/20/17 03:45 Hgb 12.0 gm/dl (11.8-15.2) 04/20/17 03:45 Hct 35.7 % (35.5-45.6) 04/20/17 03:45 MCV 98 fl (84-94) H 04/20/17 03:45 MCH 33 pg (28-32) H 04/20/17 03:45 MCHC 34 % (32-34) 04/20/17 03:45 RDW 13.4 % (13.2-15.2) 04/20/17 03:45 Plt Count 124 K/mm3 (140-440) L 04/20/17 03:45 Lymph % (Auto) 31.2 % (13.4-35.0) 04/20/17 03:45 [place] % (Auto) 7.4 % (0.0-7.3) H 04/20/17 03:45 Eos % (Auto) 3.6 % (0.0-4.3) 04/20/17 03:45 Baso % (Auto) 0.7 % (0.0-1.8) 04/20/17 03:45 Lymph # 1.4 K/mm3 (1.2-5.4) 04/20/17 03:45 [place] # 0.3 K/mm3 (0.0-0.8) 04/20/17 03:45 Eos # 0.2 K/mm3 (0.0-0.4) 04/20/17 03:45 Baso # 0.0 K/mm3 (0.0-0.1) 04/20/17 03:45 Seg Neutrophils % 57.1 % (40.0-70.0) 04/20/17 03:45 Seg Neutrophils # 2.5 K/mm3 (1.8-7.7) 04/20/17 03:45 Sodium 140 mmol/L (137-145) 04/20/17 03:45 Potassium 4.2 mmol/L (3.6-5.0) 04/20/17 03:45 Chloride 103.2 mmol/L (98-107) 04/20/17 03:45 Carbon Dioxide 26 mmol/L (22-30) 04/20/17 03:45 Anion Gap 15 mmol/L 04/20/17 03:45 BUN 10 mg/dL (9-20) 04/20/17 03:45 Creatinine 0.7 mg/dL (0.8-1.5) L 04/20/17 03:45 Estimated GFR > 60 ml/min 04/20/17 03:45 BUN/Creatinine Ratio 14 % 04/20/17 03:45 Glucose 122 mg/dL (75-100) H 04/20/17 03:45 Hemoglobin A1c 5.4 % (4-6) 04/19/17 06:48 Calcium 8.1 mg/dL (8.4-10.2) L 04/20/17 03:45 Total Bilirubin 1.00 mg/dL (0.1-1.2) 04/20/17 03:45 AST 20 units/L (5-40) 04/20/17 03:45 ALT 14 units/L (7-56) 04/20/17 03:45 Alkaline Phosphatase 95 units/L (35-129) 04/20/17 03:45 Total Protein 6.0 g/dL (6.3-8.2) L 04/20/17 03:45 Albumin 2.9 g/dL (3.9-5) L 04/20/17 03:45 Albumin/Globulin Ratio 0.9 % 04/20/17 03:45 Triglycerides 86 mg/dL (2-149) 04/19/17 06:48 Cholesterol 123 mg/dL (50-199) 04/19/17 06:48 LDL Cholesterol Direct 71 mg/dL (50-130) 04/19/17 06:48 HDL Cholesterol 35 mg/dL (40-59) L 04/19/17 06:48 Cholesterol/HDL Ratio 3.51 % 04/19/17 06:48 Amylase 42 units/L (27-131) 04/20/17 03:45 Lipase 24 units/L (13-60) 04/20/17 03:45 Urine Color Gale (Yellow) 04/19/17 00:48 Urine Turbidity Slightly-cloudy (Clear) 04/19/17 00:48 Urine pH 5.0 (5.0-7.0) 04/19/17 00:48 Ur Specific [place] 1.021 (1.003-1.030) 04/19/17 00:48 Urine Protein 30 mg/dl mg/dL (Negative) 04/19/17 00:48 Urine Glucose (UA) Neg mg/dL (Negative) 04/19/17 00:48 Urine Ketones Neg mg/dL (Negative) 04/19/17 00:48 Urine Blood Lg (Negative) 04/19/17 00:48 Urine Nitrite Neg (Negative) 04/19/17 00:48 Urine Bilirubin Neg (Negative) 04/19/17 00:48 Urine Urobilinogen < 2.0 mg/dL (<2.0) 04/19/17 00:48 Ur Leukocyte Esterase Lg (Negative) 04/19/17 00:48 Urine WBC (Auto) > 182.0 /HPF (0.0-6.0) H 04/19/17 00:48 Urine RBC (Auto) 23.0 /HPF (0.0-6.0) 04/19/17 00:48 Urine Mucus 3+ /HPF 04/19/17 00:48
--- NOTE | 2017-04-20 11:56 | Progress Note ---
Assessment and Plan Pt states "feeling better" minimal pain Abd soft. wbc 4.4 LFT's down to wnl bradycardia? surgically stable will attempt low fat cl liq diet Selected Entries 04/20/17 07:41 Temperature 98.0 F Pulse Rate 41 L Respiratory 18 Rate Blood Pressure 137/47 Laboratory Tests 04/19/17 04/19/17 04/20/17 06:48 06:48 03:45 WBC 5.2 4.4 L Hgb 12.0 Hct 35.7 Sodium Potassium Chloride Carbon Dioxide Anion Gap BUN Creatinine Total Bilirubin 1.70 H AST ALT Alkaline Phosphatase Amylase Lipase 04/20/17 03:45 WBC Hgb Hct Sodium 140 Potassium 4.2 Chloride 103.2 Carbon Dioxide 26 Anion Gap 15 BUN 10 Creatinine 0.7 L Total Bilirubin 1.00 AST 20 ALT 14 Alkaline Phosphatase 95 Amylase 42 Lipase 24 Objective Vital Signs - 12hr 04/20/17 04/20/17 04/20/17 00:01 04:23 04:26 Temperature 97.8 F 98.5 F Pulse Rate 41 L 44 L Respiratory 18 18 18 Rate Blood Pressure 119/47 126/47 O2 Sat by Pulse 98 98 Oximetry 04/20/17 04/20/17 04/20/17 04:56 07:41 09:09 Temperature 98.0 F Pulse Rate 41 L Respiratory 18 18 Rate Blood Pressure 137/47 O2 Sat by Pulse 96 98 Oximetry - Labs 04/20/17 03:45 04/20/17 03:45 Diabetes panel 04/20/17 Range/Units 03:45 Sodium 140 (137-145) mmol/L Potassium 4.2 (3.6-5.0) mmol/L Chloride 103.2 (98-107) mmol/L Carbon Dioxide 26 (22-30) mmol/L BUN 10 (9-20) mg/dL Creatinine 0.7 L (0.8-1.5) mg/dL Glucose 122 H (75-100) mg/dL Calcium 8.1 L (8.4-10.2) mg/dL AST 20 (5-40) units/L ALT 14 (7-56) units/L Alkaline Phosphatase 95 (35-129) units/L Total Protein 6.0 L (6.3-8.2) g/dL Albumin 2.9 L (3.9-5) g/dL Calcium panel 04/20/17 Range/Units 03:45 Calcium 8.1 L (8.4-10.2) mg/dL Albumin 2.9 L (3.9-5) g/dL Pituitary panel 04/20/17 Range/Units 03:45 Sodium 140 (137-145) mmol/L Potassium 4.2 (3.6-5.0) mmol/L Chloride 103.2 (98-107) mmol/L Carbon Dioxide 26 (22-30) mmol/L BUN 10 (9-20) mg/dL Creatinine 0.7 L (0.8-1.5) mg/dL Glucose 122 H (75-100) mg/dL Calcium 8.1 L (8.4-10.2) mg/dL Adrenal panel 04/20/17 Range/Units 03:45 Sodium 140 (137-145) mmol/L Potassium 4.2 (3.6-5.0) mmol/L Chloride 103.2 (98-107) mmol/L Carbon Dioxide 26 (22-30) mmol/L BUN 10 (9-20) mg/dL Creatinine 0.7 L (0.8-1.5) mg/dL Glucose 122 H (75-100) mg/dL Calcium 8.1 L (8.4-10.2) mg/dL Total Bilirubin 1.00 (0.1-1.2) mg/dL AST 20 (5-40) units/L ALT 14 (7-56) units/L Alkaline Phosphatase 95 (35-129) units/L Total Protein 6.0 L (6.3-8.2) g/dL Albumin 2.9 L (3.9-5) g/dL
[2017-04-20] MEDS: PROTONIX IV SCH (15:57)
[2017-04-20] MEDS: HEPARIN SUB-Q SCH ×2 (16:03→22:21)
[2017-04-21 05:33] LABS: Hematocrit 33.5 % (35.5-45.6); Hemoglobin 11.3 gm/dl (11.8-15.2); Mean Corpuscular HGB Conc 34 % (32-34); Mean Corpuscular Hemoglobin 33 pg (28-32); Mean Corpuscular Volume 98 fl (84-94); Platelet Count 106 K/mm3 (140-440); Red Blood Count 3.41 M/mm3 (3.65-5.03); Red Cell Distribution Width 13.6 % (13.2-15.2)
[2017-04-21 05:50] LABS: BUN/Creatinine Ratio 9; Blood Urea Nitrogen 6 mg/dL (9-20); Hemolysis Index 45
[2017-04-21] MEDS: HEPARIN SUB-Q SCH (06:15)
[2017-04-21] MEDS: ZOSYN/NS 4.5GM/100ML 4.5 GM/100 ML VIAL IV SCH ×3 (06:40→23:01)
[2017-04-21] MEDS: MORPHINE IV PRN (06:41)
[2017-04-21] MEDS ORDERED: MIRALAX 3350 PO PRN (10:00)
[2017-04-21] MEDS: PROTONIX IV SCH (10:02)
[2017-04-21] MEDS: D5NS 1,000 ML IV SCH ×2 (11:25→20:52)
--- NOTE | 2017-04-21 11:41 | Consultation ---
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 Vastus surgery was consulted for those findings. Patient is a smoker that quit 2 weeks ago. This is first time she was diagnosed with AAA. He did not have any symptoms of claudication, however she is a chronic back pain and hip pain person with no long distance walking. Past History Past Medical History: arthritis, COPD, hypertension, other ( high cholesterol. "BLOOD CLOT ON BRAIN", Prostate with polyps, BPH, stones, self cath for 2 weeks) Past Surgical History: Other (Hip BILATERAL. BACK SURGERY X 4. TONSILLECTOMY) Social history: smoking, full code. denies: alcohol abuse Family history: no significant family history Medications and Allergies Allergies Allergy/AdvReac Type Severity Reaction Status Date / Time No Known Allergies Allergy Verified 12/01/14 13:51 Home Medications Medication Instructions Recorded Confirmed Last Taken Type Baclofen [Lioresal] 10 mg PO BID 08/14/13 04/19/17 04/01/17 History clonazePAM [KlonoPIN] 1 mg PO TID 08/14/13 04/19/17 04/01/17 History Methadone [Dolophine] 10 mg PO BID #20 tablet 06/13/15 04/19/17 04/01/17 Rx Oxycodone HCl/Acetaminophen 1 each PO Q8HR PRN #30 tablet 06/13/15 04/19/1703/08 Rx [Percocet 10/325 mg] traZODone [Desyrel] 100 mg PO QHS #20 tablet 06/13/15 04/19/17 04/01/17 Rx FLUoxetine HCL [Fluoxetine HCl] 40 mg PO DAILY 03/28/17 04/19/17 03/31/17 History Pregabalin [Lyrica] 75 mg PO BID 03/28/17 04/19/17 04/01/17 History fentaNYL [Fentanyl] 1 dose INTRADERMA Q72HR 03/28/17 04/19/17 04/01/17 History Active Meds: Active Medications Albuterol (Proventil) 2.5 mg IH Q3HRT PRN PRN Reason: Shortness Of Breath Fentanyl (Duragesic) 75 mcg TD Q72HR [facility] Last Admin: 04/19/17 11:37 Dose: 75 mcg Dextrose/Sodium Chloride (D5ns) 1,000 mls @ 125 mls/hr IV DIRECT GEENA Last Admin: 04/21/17 11:25 Dose: 125 mls/hr Piperacillin Sod/Tazobactam Sod (Zosyn/Ns 4.5gm/100ml) 4.5 gm in 100 mls @ 200 mls/hr IV Q8HR GEENA PRN Reason: Protocol Last Admin: 04/21/17 06:40 Dose: 200 mls/hr Lorazepam (Ativan) 1 mg IV Q4H PRN PRN Reason: Anxiety Morphine Sulfate (Morphine) 2 mg IV Q4H PRN PRN Reason: Pain, Moderate (4-6) Last Admin: 04/21/17 06:41 Dose: 2 mg Pantoprazole Sodium (Protonix) 40 mg IV QDAY [facility] Last Admin: 04/21/17 10:02 Dose: 40 mg Polyethylene Glycol (Miralax 3350) 17 gm PO QDAY PRN PRN Reason: Constipation Review of Systems All systems: negative Exam - Constitutional Vitals: Temp Pulse Resp BP Pulse Ox 97.5 F L 38 L 20 166/54 97 04/21/17 09:07 04/21/17 09:07 04/21/17 09:07 04/21/17 09:07 04/21/17 09:07 - Cardiovascular Rhythm: regular Heart Sounds: Present: S1 & S2 Peripheral Pulses: within normal limits (no palpable right femoral pulse) Results - Labs CBC & Chem 7: 04/21/17 05:09 04/21/17 05:09 Labs: Abnormal lab results 04/21/17 04/21/17 Range/Units 05:09 05:09 WBC 3.7 L (4.5-11.0) K/mm3 RBC 3.41 L (3.65-5.03) M/mm3 Hgb 11.3 L (11.8-15.2) gm/dl Hct 33.5 L (35.5-45.6) % MCV 98 H (84-94) fl MCH 33 H (28-32) pg Plt Count 106 L (140-440) K/mm3 Chloride 107.7 H (98-107) mmol/L BUN 6 L (9-20) mg/dL Creatinine 0.7 L (0.8-1.5) mg/dL Calcium 8.0 L (8.4-10.2) mg/dL Assessment and Plan 3. 3 cm AAA and right common and external iliac occlusion Patient is asymptomatic, no history of claudication, no leg pain No repair of AAA needed at this point, however patient needs yearly monitoring with ultrasound versus CTA There is no vascular intervention needed at this time for iliac occlusion as he is asymptomatic. Patient may proceed with cholecystectomy if deemed necessary by general surgery. We'll follow up patient in our office after discharge.
--- NOTE | 2017-04-21 12:31 | Progress Note ---
Assessment and Plan Pt states feeling better. keith cl liq. changed his mind and wishes to proceed with cholecystectomy Abd soft, minimal RUQ tenderness at this time advance to low fat full liq diet. will proceed with lap GB probable open GB tues if medically cleared Selected Entries 04/20/17 04/21/17 04/21/17 22:00 07:43 09:07 Temperature 97.5 F L Pulse Rate [ 52 L Apical] Respiratory 18 Rate Blood Pressure 166/54 Laboratory Tests 04/21/17 04/21/17 05:09 05:09 WBC 3.7 L Hgb 11.3 L Hct 33.5 L Sodium 142 Potassium 4.2 Chloride 107.7 H Carbon Dioxide 24 BUN 6 L Creatinine 0.7 L Objective Vital Signs - 12hr 04/21/17 04/21/17 04/21/17 00:40 03:44 07:43 Temperature 97.8 F 97.7 F Pulse Rate 39 L 39 L Respiratory 20 20 18 Rate Blood Pressure 127/45 137/50 152/44 O2 Sat by Pulse 96 96 Oximetry 04/21/17 09:07 Temperature 97.5 F L Pulse Rate 38 L Respiratory 20 Rate Blood Pressure 166/54 O2 Sat by Pulse 97 Oximetry - Labs 04/21/17 05:09 04/21/17 05:09 Diabetes panel 04/21/17 Range/Units 05:09 Sodium 142 (137-145) mmol/L Potassium 4.2 (3.6-5.0) mmol/L Chloride 107.7 H (98-107) mmol/L Carbon Dioxide 24 (22-30) mmol/L BUN 6 L (9-20) mg/dL Creatinine 0.7 L (0.8-1.5) mg/dL Glucose 100 (75-100) mg/dL Calcium 8.0 L (8.4-10.2) mg/dL Calcium panel 04/21/17 Range/Units 05:09 Calcium 8.0 L (8.4-10.2) mg/dL Pituitary panel 04/21/17 Range/Units 05:09 Sodium 142 (137-145) mmol/L Potassium 4.2 (3.6-5.0) mmol/L Chloride 107.7 H (98-107) mmol/L Carbon Dioxide 24 (22-30) mmol/L BUN 6 L (9-20) mg/dL Creatinine 0.7 L (0.8-1.5) mg/dL Glucose 100 (75-100) mg/dL Calcium 8.0 L (8.4-10.2) mg/dL Adrenal panel 04/21/17 Range/Units 05:09 Sodium 142 (137-145) mmol/L Potassium 4.2 (3.6-5.0) mmol/L Chloride 107.7 H (98-107) mmol/L Carbon Dioxide 24 (22-30) mmol/L BUN 6 L (9-20) mg/dL Creatinine 0.7 L (0.8-1.5) mg/dL Glucose 100 (75-100) mg/dL Calcium 8.0 L (8.4-10.2) mg/dL
--- NOTE | 2017-04-21 15:59 | Progress Note ---
Assessment and Plan Assessment and plan: Patient is 76-year-old man with history of hypertension, dyslipidemia, arthritis , COPD, BPH, self bladder catheterization 2 weeks, severe chronic low back pain status post 4 back surgeries with a nonfunctional stimulator implantated in his back and tobacco dependency who presents with right lower side abdominal pains and prior nausea vomiting. Apr 01, 2017, Dr. Roach did bladder bx to remove polyp, noncancerous per family. Patient started experience n/v and RLQ abd pains and went to see Dr. Roach yesterday. CTap ordered. Dr. Roach called his cell phone and told him to go to ED because of his gallbladder. Patient being treated for acute cholecystitis. On exam, RLQ +mann sign and very tender; therefore, I cancelled all oral medications, pt should be strict NPO. Which I changed oral clonazepam to iv ativan for anxiety, Stopped oral methadone/baclofen/prozac/lyrica/oxycodone, pt already on iv morphine. Await surgery recommendation. Continue iv abx and bowel rest, ivf. 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 Abdominal ultrasound report is cholelithiasis, gallbladder wall thickening. 6 mm, there is no pericholecystic fluid, there is a mass in the gallbladder wall measuring 2.3 cm, this could be sludge or irregular polyp, neoplasm cannot be excluded, common bowel duct measures 7.5 mm in diameter. 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 Surgeon is following History Interval history: Patient was seen and examined. Follow-up on current diagnosis/abdominal pain which is much better and no nausea vomiting. Overnight uneventful. Patient denies any chest pain, shortness breath, nausea/vomiting or severe headaches. Imaging, nursing note, chart, labs and old chart reviewed. Discussed with patient. Hospitalist Physical - Physical exam Narrative exam: GEN: WDWN, NAD, AWAKE, ALERT, ORIENTATED HEENT: NCAT, EOMI, PERRL, OP Clear NECK: supple, no adenopathy, no thyromegaly, no JVD CVS/HEART: RRR, NORMAL S1S2, NO JVD, pulses present bilaterally CHEST/LUNGS: CTA B, Symmetrical chest expansion, good air entry bilaterally GI/Abdomen: soft, nondistended, right lower quadrant abdominal tenderness is resolving, good bowel sounds, no guarding or rebound /Bladder: no suprapubic tenderness, no CVA or paraspinal tenderness EXT/Skin: no c/c/e, no obvious rash MSK: FROM x 4 Neuro: CN 2-12 grossly intact, no new focal deficits Psych: calm - Constitutional Vitals: Temp Pulse Resp BP Pulse Ox 98.4 F 42 L 18 161/57 98 04/21/17 13:38 04/21/17 13:38 04/21/17 13:38 04/21/17 13:38 04/21/17 13:38 Results - Labs CBC & Chem 7: 04/21/17 05:09 04/21/17 05:09 Labs: Laboratory Last Values WBC 3.7 K/mm3 (4.5-11.0) L 04/21/17 05:09 RBC 3.41 M/mm3 (3.65-5.03) L 04/21/17 05:09 Hgb 11.3 gm/dl (11.8-15.2) L 04/21/17 05:09 Hct 33.5 % (35.5-45.6) L 04/21/17 05:09 MCV 98 fl (84-94) H 04/21/17 05:09 MCH 33 pg (28-32) H 04/21/17 05:09 MCHC 34 % (32-34) 04/21/17 05:09 RDW 13.6 % (13.2-15.2) 04/21/17 05:09 Plt Count 106 K/mm3 (140-440) L 04/21/17 05:09 Lymph % (Auto) 31.2 % (13.4-35.0) 04/20/17 03:45 [place] % (Auto) 7.4 % (0.0-7.3) H 04/20/17 03:45 Eos % (Auto) 3.6 % (0.0-4.3) 04/20/17 03:45 Baso % (Auto) 0.7 % (0.0-1.8) 04/20/17 03:45 Lymph # 1.4 K/mm3 (1.2-5.4) 04/20/17 03:45 Terrell # 0.3 K/mm3 (0.0-0.8) 04/20/17 03:45 Eos # 0.2 K/mm3 (0.0-0.4) 04/20/17 03:45 Baso # 0.0 K/mm3 (0.0-0.1) 04/20/17 03:45 Seg Neutrophils % 57.1 % (40.0-70.0) 04/20/17 03:45 Seg Neutrophils # 2.5 K/mm3 (1.8-7.7) 04/20/17 03:45 Sodium 142 mmol/L (137-145) 04/21/17 05:09 Potassium 4.2 mmol/L (3.6-5.0) 04/21/17 05:09 Chloride 107.7 mmol/L (98-107) H 04/21/17 05:09 Carbon Dioxide 24 mmol/L (22-30) 04/21/17 05:09 Anion Gap 15 mmol/L 04/21/17 05:09 BUN 6 mg/dL (9-20) L 04/21/17 05:09 Creatinine 0.7 mg/dL (0.8-1.5) L 04/21/17 05:09 Estimated GFR > 60 ml/min 04/21/17 05:09 BUN/Creatinine Ratio 9 % 04/21/17 05:09 Glucose 100 mg/dL (75-100) 04/21/17 05:09 Hemoglobin A1c 5.4 % (4-6) 04/19/17 06:48 Calcium 8.0 mg/dL (8.4-10.2) L 04/21/17 05:09 Total Bilirubin 1.00 mg/dL (0.1-1.2) 04/20/17 03:45 AST 20 units/L (5-40) 04/20/17 03:45 ALT 14 units/L (7-56) 04/20/17 03:45 Alkaline Phosphatase 95 units/L (35-129) 04/20/17 03:45 Total Protein 6.0 g/dL (6.3-8.2) L 04/20/17 03:45 Albumin 2.9 g/dL (3.9-5) L 04/20/17 03:45 Albumin/Globulin Ratio 0.9 % 04/20/17 03:45 Triglycerides 86 mg/dL (2-149) 04/19/17 06:48 Cholesterol 123 mg/dL (50-199) 04/19/17 06:48 LDL Cholesterol Direct 71 mg/dL (50-130) 04/19/17 06:48 HDL Cholesterol 35 mg/dL (40-59) L 04/19/17 06:48 Cholesterol/HDL Ratio 3.51 % 04/19/17 06:48 Amylase 42 units/L (27-131) 04/20/17 03:45 Lipase 24 units/L (13-60) 04/20/17 03:45 Urine Color Gale (Yellow) 04/19/17 00:48 Urine Turbidity Slightly-cloudy (Clear) 04/19/17 00:48 Urine pH 5.0 (5.0-7.0) 04/19/17 00:48 Ur Specific [place] 1.021 (1.003-1.030) 04/19/17 00:48 Urine Protein 30 mg/dl mg/dL (Negative) 04/19/17 00:48 Urine Glucose (UA) Neg mg/dL (Negative) 04/19/17 00:48 Urine Ketones Neg mg/dL (Negative) 04/19/17 00:48 Urine Blood Lg (Negative) 04/19/17 00:48 Urine Nitrite Neg (Negative) 04/19/17 00:48 Urine Bilirubin Neg (Negative) 04/19/17 00:48 Urine Urobilinogen < 2.0 mg/dL (<2.0) 04/19/17 00:48 Ur Leukocyte Esterase Lg (Negative) 04/19/17 00:48 Urine WBC (Auto) > 182.0 /HPF (0.0-6.0) H 04/19/17 00:48 Urine RBC (Auto) 23.0 /HPF (0.0-6.0) 04/19/17 00:48 Urine Mucus 3+ /HPF 04/19/17 00:48
[2017-04-21] MEDS: PERCOCET 5/325 PO PRN ×2 (16:21→22:56)
[2017-04-21] MEDS: LYRICA PO SCH ×2 (20:50→23:00)
[2017-04-21] MEDS: LIORESAL PO SCH ×2 (20:50→23:00)
[2017-04-22] MEDS: PERCOCET 5/325 PO PRN ×3 (05:21→23:50)
[2017-04-22] MEDS: ZOSYN/NS 4.5GM/100ML 4.5 GM/100 ML VIAL IV SCH ×3 (05:21→21:25)
[2017-04-22] MEDS: D5NS 1,000 ML IV SCH ×3 (05:22→21:26)
[2017-04-22] MEDS: PROTONIX IV SCH (09:15)
[2017-04-22] MEDS: LIORESAL PO SCH ×2 (09:18→21:26)
[2017-04-22] MEDS: LYRICA PO SCH ×2 (09:19→21:26)
[2017-04-22] MEDS: PROzac PO SCH (11:06)
--- NOTE | 2017-04-22 12:43 | Progress Note ---
Assessment and Plan Pt feeling well. no specific compl. Abd exam status quo risk, indications & compl reviewed for lap GB in am probable open pending medical clearance consent signed Selected Entries 04/21/17 04/22/17 20:07 10:00 Temperature 97.8 F Pulse Rate 44 L O2 Sat by Pulse 98 Oximetry Blood Pressure 136/46 Objective Vital Signs - 12hr 04/22/17 10:00 Respiratory 18 Rate O2 Sat by Pulse 98 Oximetry - Labs 04/21/17 05:09 04/21/17 05:09
--- NOTE | 2017-04-22 12:49 | Progress Note ---
Assessment and Plan Assessment and plan: Patient is 76-year-old man with history of hypertension, dyslipidemia, arthritis , COPD, BPH, self bladder catheterization 2 weeks, severe chronic low back pain status post 4 back surgeries with a nonfunctional stimulator implantated in his back and tobacco dependency who presents with right lower side abdominal pains and prior nausea vomiting. Apr 01, 2017, Dr. Roach did bladder bx to remove polyp, noncancerous per family. Patient started experience n/v and RLQ abd pains and went to see Dr. Roach yesterday. CTap ordered. Dr. Roach called his cell phone and told him to go to ED because of his gallbladder. Patient being treated for acute cholecystitis. On exam, RLQ +mann sign and very tender; therefore, I cancelled all oral medications, pt should be strict NPO. Which I changed oral clonazepam to iv ativan for anxiety, Stopped oral methadone/baclofen/prozac/lyrica/oxycodone, pt already on iv morphine. Await surgery recommendation. Continue iv abx and bowel rest, ivf. 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 Abdominal ultrasound report is cholelithiasis, gallbladder wall thickening. 6 mm, there is no pericholecystic fluid, there is a mass in the gallbladder wall measuring 2.3 cm, this could be sludge or irregular polyp, neoplasm cannot be excluded, common bowel duct measures 7.5 mm in diameter. -Acute gallstone cholecystitis: Treat with IV antibiotics, IV fluids, IV narcotics, bowel rest, general surgery is following -UTI, present on admission with self-catheterization and recent surgery: Treat with IV antibiotics, urine culture ordered===>E. 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 Surgeon is following 04/22/2017: pancytopenia most likely from iv zosyn, can switch to levaquin or rocephin. Moderate risk and ok from internal medicine standpoint to proceed with Cholecystectomy d/w Dr. Dm Stanton, whom I placed on consult. Echo can be done after. History Interval history: Patient was seen and examined. Follow-up on current diagnosis/abdominal pain which is much better and no nausea vomiting. Overnight uneventful. Patient denies any chest pain, shortness breath, nausea/vomiting or severe headaches. Imaging, nursing note, chart, labs and old chart reviewed. Discussed with patient. Hospitalist Physical - Physical exam Narrative exam: GEN: WDWN, NAD, AWAKE, ALERT, ORIENTATED HEENT: NCAT, EOMI, PERRL, OP Clear NECK: supple, no adenopathy, no thyromegaly, no JVD CVS/HEART: RRR, NORMAL S1S2, NO JVD, pulses present bilaterally CHEST/LUNGS: CTA B, Symmetrical chest expansion, good air entry bilaterally GI/Abdomen: soft, nondistended, right lower quadrant abdominal tenderness is resolving, good bowel sounds, no guarding or rebound /Bladder: no suprapubic tenderness, no CVA or paraspinal tenderness EXT/Skin: no c/c/e, no obvious rash MSK: FROM x 4 Neuro: CN 2-12 grossly intact, no new focal deficits Psych: calm - Constitutional Vitals: Temp Pulse Resp BP Pulse Ox 97.8 F 44 L 18 136/46 98 04/21/17 20:07 04/21/17 20:07 04/22/17 10:00 04/21/17 20:07 04/22/17 10:00 Results - Labs CBC & Chem 7: 04/21/17 05:09 04/21/17 05:09 Labs: Laboratory Last Values WBC 3.7 K/mm3 (4.5-11.0) L 04/21/17 05:09 RBC 3.41 M/mm3 (3.65-5.03) L 04/21/17 05:09 Hgb 11.3 gm/dl (11.8-15.2) L 04/21/17 05:09 Hct 33.5 % (35.5-45.6) L 04/21/17 05:09 MCV 98 fl (84-94) H 04/21/17 05:09 MCH 33 pg (28-32) H 04/21/17 05:09 MCHC 34 % (32-34) 04/21/17 05:09 RDW 13.6 % (13.2-15.2) 04/21/17 05:09 Plt Count 106 K/mm3 (140-440) L 04/21/17 05:09 Lymph % (Auto) 31.2 % (13.4-35.0) 04/20/17 03:45 [place] % (Auto) 7.4 % (0.0-7.3) H 04/20/17 03:45 Eos % (Auto) 3.6 % (0.0-4.3) 04/20/17 03:45 Baso % (Auto) 0.7 % (0.0-1.8) 04/20/17 03:45 Lymph # 1.4 K/mm3 (1.2-5.4) 04/20/17 03:45 [place] # 0.3 K/mm3 (0.0-0.8) 04/20/17 03:45 Eos # 0.2 K/mm3 (0.0-0.4) 04/20/17 03:45 Baso # 0.0 K/mm3 (0.0-0.1) 04/20/17 03:45 Seg Neutrophils % 57.1 % (40.0-70.0) 04/20/17 03:45 Seg Neutrophils # 2.5 K/mm3 (1.8-7.7) 04/20/17 03:45 Sodium 142 mmol/L (137-145) 04/21/17 05:09 Potassium 4.2 mmol/L (3.6-5.0) 04/21/17 05:09 Chloride 107.7 mmol/L (98-107) H 04/21/17 05:09 Carbon Dioxide 24 mmol/L (22-30) 04/21/17 05:09 Anion Gap 15 mmol/L 04/21/17 05:09 BUN 6 mg/dL (9-20) L 04/21/17 05:09 Creatinine 0.7 mg/dL (0.8-1.5) L 04/21/17 05:09 Estimated GFR > 60 ml/min 04/21/17 05:09 BUN/Creatinine Ratio 9 % 04/21/17 05:09 Glucose 100 mg/dL (75-100) 04/21/17 05:09 Hemoglobin A1c 5.4 % (4-6) 04/19/17 06:48 Calcium 8.0 mg/dL (8.4-10.2) L 04/21/17 05:09 Total Bilirubin 1.00 mg/dL (0.1-1.2) 04/20/17 03:45 AST 20 units/L (5-40) 04/20/17 03:45 ALT 14 units/L (7-56) 04/20/17 03:45 Alkaline Phosphatase 95 units/L (35-129) 04/20/17 03:45 Total Protein 6.0 g/dL (6.3-8.2) L 04/20/17 03:45 Albumin 2.9 g/dL (3.9-5) L 04/20/17 03:45 Albumin/Globulin Ratio 0.9 % 04/20/17 03:45 Triglycerides 86 mg/dL (2-149) 04/19/17 06:48 Cholesterol 123 mg/dL (50-199) 04/19/17 06:48 LDL Cholesterol Direct 71 mg/dL (50-130) 04/19/17 06:48 HDL Cholesterol 35 mg/dL (40-59) L 04/19/17 06:48 Cholesterol/HDL Ratio 3.51 % 04/19/17 06:48 Amylase 42 units/L (27-131) 04/20/17 03:45 Lipase 24 units/L (13-60) 04/20/17 03:45 Urine Color Gale (Yellow) 04/19/17 00:48 Urine Turbidity Slightly-cloudy (Clear) 04/19/17 00:48 Urine pH 5.0 (5.0-7.0) 04/19/17 00:48 Ur Specific D [place] 1.021 (1.003-1.030) 04/19/17 00:48 Urine Protein 30 mg/dl mg/dL (Negative) 04/19/17 00:48 Urine Glucose (UA) Neg mg/dL (Negative) 04/19/17 00:48 Urine Ketones Neg mg/dL (Negative) 04/19/17 00:48 Urine Blood Lg (Negative) 04/19/17 00:48 Urine Nitrite Neg (Negative) 04/19/17 00:48 Urine Bilirubin Neg (Negative) 04/19/17 00:48 Urine Urobilinogen < 2.0 mg/dL (<2.0) 04/19/17 00:48 Ur Leukocyte Esterase Lg (Negative) 04/19/17 00:48 Urine WBC (Auto) > 182.0 /HPF (0.0-6.0) H 04/19/17 00:48 Urine RBC (Auto) 23.0 /HPF (0.0-6.0) 04/19/17 00:48 Urine Mucus 3+ /HPF 04/19/17 00:48
--- NOTE | 2017-04-23 02:06 | Consultation ---
HISTORY OF PRESENT ILLNESS: The patient is a 76-year-old gentleman admitted with abdominal pain. An outpatient CT scan apparently suggested cholecystitis. The patient has been admitted and he developed sinus bradycardia and hence the cardiac evaluation. The patient has history of hypertension and hyperlipidemia. No previous history of myocardial infarction or congestive heart failure. At present, he denies any chest pain. The patient had cardiac catheterization. The patient is known to have chronic obstructive pulmonary disease and significant back problems and has been under pain management. The patient has been seen by General Surgery and the plan is possible cholecystectomy tomorrow. The patient denies any chest pain to suggest angina pectoris. REVIEW OF SYSTEMS: HEAD, EYES, EARS, NOSE AND THROAT: No symptoms. ENDOCRINE: No history of diabetes. GASTROINTESTINAL: No abdominal pain, nausea, or vomiting. Bowel habits have been regular. Complains about abdominal pain, diagnosed to have cholecystitis and scheduled for surgery. GENITOURINARY: History of urinary tract infection. CENTRAL NERVOUS SYSTEM: No symptoms. PHYSICAL EXAMINATION: GENERAL: Adult gentleman, well built and nourished, in no acute distress at this time. VITAL SIGNS: Blood pressure 136/46, pulse 44, respirations 18. HEAD, EYES, EAR, NOSE AND THROAT: Unremarkable. NECK: Supple. No thyromegaly. Both carotids are palpable and equal. Neck veins are flat. CHEST: Symmetrical. LUNGS: Essentially clear. CARDIOVASCULAR: S1 and S2 are heard well. No S3. No significant murmurs are present. ABDOMEN: Soft. Right upper quadrant tenderness is present. EXTREMITIES: No significant edema or calf tenderness. LABORATORY DATA: EKG is pending. Rhythm strips show sinus bradycardia with narrow QRS complexes. WBC 3.7, hemoglobin 11.3, hematocrit 33.5, platelet count gradually reduced from 135 to 106, sodium 142, potassium 4.2. Total cholesterol 123, LDL 71, HDL 35. IMPRESSION: 1. Possible acute cholecystitis. 2. Sinus bradycardia. 3. Degenerative joint disease with significant back pain with multiple pain medications. The patient is seen for cardiac evaluation prior to cholecystectomy because of bradycardia. The patient does have sinus bradycardia. PLAN: The plan at this time is to obtain an EKG and echocardiogram for further cardiac evaluation. The patient apparently had no significant coronary artery disease in the past. Plan at this time is continued current management and will review the EKG and echo once done. At present, cardiac status appears to be stable. We will follow closely with you. Thank you, Dr. Hunt, for allowing me to participate in the care of this gentleman. JOB# [id number] MURPHY/NTS
[2017-04-23] MEDS: ZOSYN/NS 4.5GM/100ML 4.5 GM/100 ML VIAL IV SCH ×3 (06:02→22:00)
--- NOTE | 2017-04-23 08:32 | Anesthesia Consultation ---
Anesthesia Consult and Med Hx Date of service: 04/23/17 - Airway Anesthetic Teeth Evaluation: Edentulous ROM Head & Neck: Adequate Mental/Hyoid Distance: Adequate Mallampati Class: Class I Intubation Access Assessment: Good - Pre-Operative Health Status ASA Pre-Surgery Classification: ASA3 Proposed Anesthetic Plan: General - Pulmonary Hx Smoking: Yes (3 CIGARS PER DAY 1/2 pack cigarettes per day x50 yrs) COPD: Yes (ON H&P , BUT PT DENIES) Hx Sleep Apnea: No ([place] PRE SCREEN HIGH RISK) - Cardiovascular System Hx Hypertension: Yes (NO MEDS, pt denies) - Central Nervous System Hx Back Pain: Yes (CHRONIC BACK PAIN TO ROXANA LEGS, nerve stimulator, chronic pain meds) - Endocrine Hx Renal Disease: Yes (BPH, stones, self cath for 2 weeks) Hx Liver Disease: No Hx Non-Insulin Dependent Diabetes: No - Other Systems Hx Cancer: No - Additional Comments Anesthesia Medical History Comments: Multpile procedures with no complications. Pt. states that he was told that he has an aortic aneurysm that will not be affected by this surgery.
--- NOTE | 2017-04-23 09:59 | Progress Note ---
Assessment and Plan Assessment and plan: Patient is 76-year-old man with history of hypertension, dyslipidemia, arthritis , COPD, BPH, self bladder catheterization 2 weeks, severe chronic low back pain status post 4 back surgeries with a nonfunctional stimulator implantated in his back and tobacco dependency who presents with right lower side abdominal pains and prior nausea vomiting. Apr 01, 2017, Dr. Roach did bladder bx to remove polyp, noncancerous per family. Patient started experience n/v and RLQ abd pains and went to see Dr. Roach yesterday. CTap ordered. Dr. Roach called his cell phone and told him to go to ED because of his gallbladder. Patient being treated for acute cholecystitis. On exam, RLQ +mann sign and very tender; therefore, I cancelled all oral medications, pt should be strict NPO. Which I changed oral clonazepam to iv ativan for anxiety, Stopped oral methadone/baclofen/prozac/lyrica/oxycodone, pt already on iv morphine. Await surgery recommendation. Continue iv abx and bowel rest, ivf. 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 Abdominal ultrasound report is cholelithiasis, gallbladder wall thickening. 6 mm, there is no pericholecystic fluid, there is a mass in the gallbladder wall measuring 2.3 cm, this could be sludge or irregular polyp, neoplasm cannot be excluded, common bowel duct measures 7.5 mm in diameter. -Acute gallstone cholecystitis: Treat with IV antibiotics, IV fluids, IV narcotics, bowel rest, general surgery is following -UTI, present on admission with self-catheterization and recent surgery: Treat with IV antibiotics, urine culture ordered===>E. 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 Surgeon is following 04/22/2017: pancytopenia most likely from iv zosyn, can switch to levaquin or rocephin. Moderate risk and ok from internal medicine standpoint to proceed with Cholecystectomy d/w Dr. Dm Stanton, whom I placed on consult. 04/23/2017: Surgery today. Echo ordered since 04/21/17, cardiology to review. History Interval history: Patient was seen and examined. Follow-up on current diagnosis/abdominal pain which is much better and no nausea vomiting. Overnight uneventful. Patient denies any chest pain, shortness breath, nausea/vomiting or severe headaches. Imaging, nursing note, chart, labs and old chart reviewed. Discussed with patient. Hospitalist Physical - Physical exam Narrative exam: GEN: WDWN, NAD, AWAKE, ALERT, ORIENTATED HEENT: NCAT, EOMI, PERRL, OP Clear NECK: supple, no adenopathy, no thyromegaly, no JVD CVS/HEART: RRR, NORMAL S1S2, NO JVD, pulses present bilaterally CHEST/LUNGS: CTA B, Symmetrical chest expansion, good air entry bilaterally GI/Abdomen: soft, nondistended, right lower quadrant abdominal tenderness is resolving, good bowel sounds, no guarding or rebound /Bladder: no suprapubic tenderness, no CVA or paraspinal tenderness EXT/Skin: no c/c/e, no obvious rash MSK: FROM x 4 Neuro: CN 2-12 grossly intact, no new focal deficits Psych: calm - Constitutional Vitals: Temp Pulse Resp BP Pulse Ox 98.1 F 45 L 18 151/66 94 04/23/17 07:45 04/23/17 07:45 04/23/17 07:45 04/23/17 07:45 04/23/17 07:45 Results - Labs CBC & Chem 7: 04/21/17 05:09 04/21/17 05:09 Labs: Laboratory Last Values WBC 3.7 K/mm3 (4.5-11.0) L 04/21/17 05:09 RBC 3.41 M/mm3 (3.65-5.03) L 04/21/17 05:09 Hgb 11.3 gm/dl (11.8-15.2) L 04/21/17 05:09 Hct 33.5 % (35.5-45.6) L 04/21/17 05:09 MCV 98 fl (84-94) H 04/21/17 05:09 MCH 33 pg (28-32) H 04/21/17 05:09 MCHC 34 % (32-34) 04/21/17 05:09 RDW 13.6 % (13.2-15.2) 04/21/17 05:09 Plt Count 106 K/mm3 (140-440) L 04/21/17 05:09 Lymph % (Auto) 31.2 % (13.4-35.0) 04/20/17 03:45 [place] % (Auto) 7.4 % (0.0-7.3) H 04/20/17 03:45 Eos % (Auto) 3.6 % (0.0-4.3) 04/20/17 03:45 Baso % (Auto) 0.7 % (0.0-1.8) 04/20/17 03:45 Lymph # 1.4 K/mm3 (1.2-5.4) 04/20/17 03:45 [place] # 0.3 K/mm3 (0.0-0.8) 04/20/17 03:45 Eos # 0.2 K/mm3 (0.0-0.4) 04/20/17 03:45 Baso # 0.0 K/mm3 (0.0-0.1) 04/20/17 03:45 Seg Neutrophils % 57.1 % (40.0-70.0) 04/20/17 03:45 Seg Neutrophils # 2.5 K/mm3 (1.8-7.7) 04/20/17 03:45 Sodium 142 mmol/L (137-145) 04/21/17 05:09 Potassium 4.2 mmol/L (3.6-5.0) 04/21/17 05:09 Chloride 107.7 mmol/L (98-107) H 04/21/17 05:09 Carbon Dioxide 24 mmol/L (22-30) 04/21/17 05:09 Anion Gap 15 mmol/L 04/21/17 05:09 BUN 6 mg/dL (9-20) L 04/21/17 05:09 Creatinine 0.7 mg/dL (0.8-1.5) L 04/21/17 05:09 Estimated GFR > 60 ml/min 04/21/17 05:09 BUN/Creatinine Ratio 9 % 04/21/17 05:09 Glucose 100 mg/dL (75-100) 04/21/17 05:09 Hemoglobin A1c 5.4 % (4-6) 04/19/17 06:48 Calcium 8.0 mg/dL (8.4-10.2) L 04/21/17 05:09 Total Bilirubin 1.00 mg/dL (0.1-1.2) 04/20/17 03:45 AST 20 units/L (5-40) 04/20/17 03:45 ALT 14 units/L (7-56) 04/20/17 03:45 Alkaline Phosphatase 95 units/L (35-129) 04/20/17 03:45 Total Protein 6.0 g/dL (6.3-8.2) L 04/20/17 03:45 Albumin 2.9 g/dL (3.9-5) L 04/20/17 03:45 Albumin/Globulin Ratio 0.9 % 04/20/17 03:45 Triglycerides 86 mg/dL (2-149) 04/19/17 06:48 Cholesterol 123 mg/dL (50-199) 04/19/17 06:48 LDL Cholesterol Direct 71 mg/dL (50-130) 04/19/17 06:48 HDL Cholesterol 35 mg/dL (40-59) L 04/19/17 06:48 Cholesterol/HDL Ratio 3.51 % 04/19/17 06:48 Amylase 42 units/L (27-131) 04/20/17 03:45 Lipase 24 units/L (13-60) 04/20/17 03:45 Urine Color Gale (Yellow) 04/19/17 00:48 Urine Turbidity Slightly-cloudy (Clear) 04/19/17 00:48 Urine pH 5.0 (5.0-7.0) 04/19/17 00:48 Ur Specific [place] 1.021 (1.003-1.030) 04/19/17 00:48 Urine Protein 30 mg/dl mg/dL (Negative) 04/19/17 00:48 Urine Glucose (UA) Neg mg/dL (Negative) 04/19/17 00:48 Urine Ketones Neg mg/dL (Negative) 04/19/17 00:48 Urine Blood Lg (Negative) 04/19/17 00:48 Urine Nitrite Neg (Negative) 04/19/17 00:48 Urine Bilirubin Neg (Negative) 04/19/17 00:48 Urine Urobilinogen < 2.0 mg/dL (<2.0) 04/19/17 00:48 Ur Leukocyte Esterase Lg (Negative) 04/19/17 00:48 Urine WBC (Auto) > 182.0 /HPF (0.0-6.0) H 04/19/17 00:48 Urine RBC (Auto) 23.0 /HPF (0.0-6.0) 04/19/17 00:48 Urine Mucus 3+ /HPF 04/19/17 00:48
[2017-04-23] MEDS ORDERED: WATER FOR INJ (PF) 10 ML ONE (10:33)
[2017-04-23] MEDS: D5NS 1,000 ML IV SCH ×2 (10:40→21:30)
[2017-04-23] MEDS: PROTONIX IV SCH (10:41)
[2017-04-23] MEDS: LIORESAL PO SCH (10:41)
[2017-04-23] MEDS: LYRICA PO SCH (10:42)
[2017-04-23] MEDS: PERCOCET 5/325 PO PRN (10:56)
--- NOTE | 2017-04-23 11:14 | Progress Note ---
Assessment and Plan Assessment: Asymptomatic sinus bradycardia Acute cholecystitis Hypertension Hyperlipidemia COPD 3.3cm AAA Chronic back pain Tobacco abuse Plan: Echo revealed normal LV function. Patient is stable from a cardiac standpoint to proceed with cholecystectomy as planned. Will continue to observe on the monitor. Recommend having temporary pacing pads on standby for use if needed during surgery. The patient has been seen in conjunction with Dr. Ashton who agrees with the assessment and plan of care. Subjective Date of service: 04/23/17 Principal diagnosis: pre-op evaluation, sinus bradycardia Interval history: The patient is resting comfortably in bed. Denies chest pain, shortness of breath, dizziness, lightheadedness or syncope. Objective Last Vital Signs Temp 98.1 F 04/23/17 07:45 Pulse 45 L 04/23/17 07:45 Resp 18 04/23/17 07:45 BP 151/66 04/23/17 07:45 Pulse Ox 94 04/23/17 07:45 - Physical Examination General: No Apparent Distress HEENT: Positive: Normocephaly, Mucus Membranes Moist Neck: Positive: neck supple, trachea midline Cardiac: Positive: Reg Rate and Rhythm, S1/S2 Lungs: Positive: clear to auscultation Neuro: Positive: Grossly Intact Abdomen: Positive: Soft Skin: Positive: Clear. Negative: Rash Extremities: Present: normal. Absent: edema - Imaging and Cardiology Echo: pending - Telemetry EKG Rhythm: Sinus Bradycardia
[2017-04-23] MEDS ORDERED: LACTATED RINGERS 1,000 ML IV SCH (13:00)
[2017-04-23] MEDS ORDERED: PEPCID IV NR (13:00)
[2017-04-23] MEDS ORDERED: SUBLIMAZE ONE ×2 (13:56→14:50)
[2017-04-23] MEDS ORDERED: DIPRIVAN 10 MG/ML IV ONE ×2 (13:56→16:21)
[2017-04-23] MEDS ORDERED: ZEMURON IV ONE (13:57)
[2017-04-23] MEDS ORDERED: ROBINUL ONE ×2 (13:58→15:54)
[2017-04-23] MEDS ORDERED: MARCAINE 0.5% 0 ML INFILTRATI ONE (14:18)
[2017-04-23] MEDS ORDERED: PROAIR IH ONE (14:36)
[2017-04-23] MEDS ORDERED: ePHEDrine SULFATE ONE (15:14)
[2017-04-23] MEDS ORDERED: NACL 0.9% 500 ML 500 ML IV ONE (15:17)
[2017-04-23] MEDS ORDERED: NACL 0.9% IR ONE (15:20)
[2017-04-23] MEDS ORDERED: ALBURX 25% (ALBUMIN) IV ONE ×2 (15:20→15:47)
[2017-04-23] MEDS ORDERED: GELFOAM TP ONE ×2 (15:25→16:00)
[2017-04-23] MEDS ORDERED: THROMBIN (BOVINE) TP ONE ×2 (15:25→16:00)
[2017-04-23] MEDS ORDERED: APRESOLINE ONE (15:59)
[2017-04-23] MEDS ORDERED: LACTATED RINGERS 2,000 ML ONE (16:00)
[2017-04-23] MEDS ORDERED: NACL 0.9% 1000 ML 2,000 ML ONE (16:00)
[2017-04-23] MEDS ORDERED: QUELICIN ONE (16:21)
--- NOTE | 2017-04-23 17:00 | Operative Report ---
PREOPERATIVE DIAGNOSIS: Cholecystitis. POSTOPERATIVE DIAGNOSES: Cholecystitis, rule out gallbladder malignancy. PROCEDURE: 1. Diagnostic laparoscopy. 2. Open cholecystectomy. SURGEON: Rocael Kim MD DINING SERVICE SUPERVISOR: Dr. Galindo. ANESTHESIA: General. ESTIMATED BLOOD LOSS: 1000 mL. DRAINS: One 19 Jose Miguel drain left. COMPLICATIONS: No complications. PROCEDURE IN DETAIL: The patient was taken to the operating room, prepped and draped in usual sterile fashion. The gallbladder was palpable up on the floor and preop under anesthesia. Thus, it was decided to insert the laparoscope in the left upper quadrant of the abdomen first and assess the right upper quadrant. This was done without incident after proper insufflation. Inspection of the gallbladder revealed a rock hard gallbladder in omentum and bowel. It was decided at this point to convert to open cholecystectomy. A right subcostal incision was made and abdomen entered. The adhesions around the gallbladder were slowly lysed and the omentum slowly dissected free until the gallbladder could be completely visualized. The gallbladder was noted to be intrahepatic and rock hard suspicious for malignancy. A ring clamp was used to grasp the fundus of the gallbladder and cholecystectomy was performed from fundus down towards infundibulum. Gallbladder as previously mentioned was intrahepatic and it was actually totally stuck in the liver parenchyma with no planes could be created. Oozing was noted from very dilated sinusoidal type hepatic veins during the dissection. A fair amount of oozing and bleeding was noted. This was initially controlled with pressure packs and subsequently with Vicryl sutures at two separate points of bleeding. Area was then irrigated copiously and dried. Checked for hemostasis and noted to be dry. Packing was left in this area and cholecystectomy continued. The cystic duct and artery were then identified. Both were then doubly clipped and transected. The cystic duct was also triply clipped and transected. Once again, the entire area was irrigated copiously and dried. Checked for hemostasis and noted to be dry in the area of cystic duct and artery dissection. Common duct was also identified and noted to be intact. The lap packs and the gallbladder fossa were slowly removed. A slight oozing noted, but no further evidence of bleeding. The patient received 25 grams of albumin intraoperatively and will be getting one unit of packed RBCs and subsequent H and H in recovery. Central line was also inserted. The gallbladder fossa was then packed with Surgicel. Also Gelfoam and thrombin were used in this area packed and once again pressure held manually for around 5 minutes. The air was then once again carefully inspected and no oozing or bleeding noted. A 19 Jose Miguel was left draining the gallbladder fossa. The drain was secured to the skin with a 2-0 silk suture. A posterior fascia was then closed with running 0 Vicryl suture. Anterior fascia closed with interrupted #1 Vicryl suture. Subcutaneous tissues irrigated and skin closed with laurita. The patient tolerated the procedure well and left OR in stable condition. Blood pressure and vital signs were all stable. A chest x-ray will be obtained in recovery since central line was inserted. Also, will be given the blood and will get a post-transfusion CBC. JOB# [id number] LYLE/NAM
[2017-04-23] MEDS ORDERED: NACL 0.9% 500 ML 500 ML ONE (17:23)
[2017-04-23] MEDS ORDERED: DIPRIVAN 10 MG/ML 1,000 MG/100 ML BOTTLE IV ONE (18:01)
--- NOTE | 2017-04-23 18:01 | XRay Report ---
FINAL REPORT EXAM: XR CHEST 1V AP HISTORY: CVP placement TECHNIQUE: AP portable view of the chest PRIORS: None. FINDINGS: Lines, tubes, and devices: The endotracheal tube terminates above at the level of the clavicles. A right jugular venous catheter terminates in the distal superior vena cava. Spinal cord stimulator leads terminate over T8 vertebral level. Lungs and pleura: Trachea is normal in position. Calcified density in the left midlung zone is likely a granuloma. Subtle interstitial prominence throughout both lungs, likely chronic, is noted. Lungs are otherwise clear of infiltrate, pleural effusion, vascular congestion, or pneumothorax. Cardiomediastinal silhouette: Cardiac and mediastinal silhouettes are unremarkable. Other: Bony structures demonstrate a remote rib fracture involving the posterior left 5th rib. IMPRESSION: Satisfactory line placement without pneumothorax. Calcified granuloma in the left midlung zone. Subtle diffuse interstitial prominence, probably chronic.
[2017-04-23] MEDS: MORPHINE IV PRN ×2 (20:40→21:30)
[2017-04-23 21:39] LABS: Hematocrit 33.3 % (35.5-45.6); Hemoglobin 11.1 gm/dl (11.8-15.2); Mean Corpuscular HGB Conc 33 % (32-34); Mean Corpuscular Hemoglobin 32 pg (28-32); Mean Corpuscular Volume 94 fl (84-94); Platelet Count 122 K/mm3 (140-440); Red Blood Count 3.53 M/mm3 (3.65-5.03); Red Cell Distribution Width 14.1 % (13.2-15.2)
[2017-04-24] MEDS ORDERED: MORPHINE ONE (00:07)
[2017-04-24] MEDS: MORPHINE IV PRN ×5 (00:10→21:55)
[2017-04-24] MEDS: LYRICA PO SCH ×3 (02:45→21:51)
[2017-04-24] MEDS: LIORESAL PO SCH ×3 (02:45→21:51)
[2017-04-24] MEDS ORDERED: DIPRIVAN 10 MG/ML 1,000 MG/100 ML BOTTLE IV ONE (03:54)
[2017-04-24] MEDS: DIPRIVAN 10 MG/ML 1,000 MG/100 ML BOTTLE IV SCH ×3 (04:00→08:32)
[2017-04-24] MEDS ORDERED: VASELINE LIP THERAPY TP PRN (04:58)
[2017-04-24] MEDS ORDERED: ARTIFICIAL TEARS OPHTH OINT OU PRN (04:58)
[2017-04-24] MEDS: ZOSYN/NS 4.5GM/100ML 4.5 GM/100 ML VIAL IV SCH ×3 (06:00→21:50)
[2017-04-24] MEDS: D5NS 1,000 ML IV SCH (06:00)
[2017-04-24 06:29] LABS: Basophils % (Auto) 0.3 % (0.0-1.8); Eosinophils # (Auto) 0.1 K/mm3 (0.0-0.4); Eosinophils % (Auto) 0.9 % (0.0-4.3); Hematocrit 32.7 % (35.5-45.6); Hemoglobin 11.2 gm/dl (11.8-15.2); Lymphocytes # (Auto) 0.7 K/mm3 (1.2-5.4); Lymphocytes % (Auto) 10.7 % (13.4-35.0); Mean Corpuscular HGB Conc 34 % (32-34); Mean Corpuscular Hemoglobin 32 pg (28-32); Mean Corpuscular Volume 94 fl (84-94); Monocytes # (Auto) 0.6 K/mm3 (0.0-0.8); Monocytes % (Auto) 8.4 % (0.0-7.3); Platelet Count 124 K/mm3 (140-440); Red Blood Count 3.49 M/mm3 (3.65-5.03); Red Cell Distribution Width 13.9 % (13.2-15.2)
[2017-04-24 06:46] LABS: Alanine Aminotransferase 24 units/L (7-56); Albumin 3.4 g/dL (3.9-5); BUN/Creatinine Ratio 5; Blood Urea Nitrogen 3 mg/dL (9-20); Calcium 7.6 mg/dL (8.4-10.2); Hemolysis Index 7
--- NOTE | 2017-04-24 10:12 | Progress Note ---
Assessment and Plan POD #1 Pt feeling well. no compl. extubated. breathing comfortably Abd soft dressing dry. minimal drainage from TOYA LFT's - wnl low K surgically stable may transfer to surgical telemetry bed keep npo replenish K Selected Entries 04/24/17 04/24/17 09:00 09:35 Pulse Rate 52 L Respiratory 22 Rate Blood Pressure 143/54 Laboratory Tests 04/23/17 04/24/17 04/24/17 21:30 06:10 06:10 WBC 7.0 Hgb 11.1 L 11.2 L Hct 33.3 L 32.7 L Sodium 143 Potassium 3.2 L D Chloride 105.0 Carbon Dioxide 25 BUN 3 L Creatinine 0.6 L Total Bilirubin 1.10 AST 46 H ALT 24 Alkaline Phosphatase 56 Objective Vital Signs - 12hr 04/23/17 04/23/17 04/24/17 23:00 23:56 00:00 Temperature Pulse Rate 48 L 54 L 51 L Respiratory 22 22 Rate Blood Pressure 153/54 Blood Pressure 153/54 154/60 [Left] O2 Sat by Pulse 98 98 98 Oximetry 04/24/17 04/24/17 04/24/17 00:10 01:00 02:00 Temperature Pulse Rate 50 L 48 L Respiratory 22 22 22 Rate Blood Pressure Blood Pressure 167/50 112/53 [Left] O2 Sat by Pulse 97 98 Oximetry 04/24/17 04/24/17 04/24/17 03:00 04:00 04:30 Temperature Pulse Rate 49 L 50 L Respiratory 22 22 22 Rate Blood Pressure Blood Pressure 112/54 150/56 [Left] O2 Sat by Pulse 98 97 Oximetry 04/24/17 04/24/17 04/24/17 04:35 06:00 07:20 Temperature Pulse Rate 50 L 47 L Respiratory 22 22 Rate Blood Pressure 150/56 Blood Pressure 119/45 [Left] O2 Sat by Pulse 97 98 Oximetry 04/24/17 04/24/17 04/24/17 08:01 08:27 08:47 Temperature Pulse Rate 48 L 51 L Respiratory 22 22 23 Rate Blood Pressure 102/48 Blood Pressure 102/48 [Left] O2 Sat by Pulse 97 Oximetry 04/24/17 04/24/17 09:00 09:35 Temperature 98.3 F Pulse Rate 51 L 52 L Respiratory 22 29 H Rate Blood Pressure 153/54 143/54 Blood Pressure [Left] O2 Sat by Pulse 96 96 Oximetry - Labs 04/24/17 06:10 04/24/17 06:10 Diabetes panel 04/24/17 Range/Units 06:10 Sodium 143 (137-145) mmol/L Potassium 3.2 L D (3.6-5.0) mmol/L Chloride 105.0 (98-107) mmol/L Carbon Dioxide 25 (22-30) mmol/L BUN 3 L (9-20) mg/dL Creatinine 0.6 L (0.8-1.5) mg/dL Glucose 138 H (75-100) mg/dL Calcium 7.6 L (8.4-10.2) mg/dL AST 46 H (5-40) units/L ALT 24 (7-56) units/L Alkaline Phosphatase 56 (35-129) units/L Total Protein 5.2 L (6.3-8.2) g/dL Albumin 3.4 L (3.9-5) g/dL Calcium panel 04/24/17 Range/Units 06:10 Calcium 7.6 L (8.4-10.2) mg/dL Albumin 3.4 L (3.9-5) g/dL Pituitary panel 04/24/17 Range/Units 06:10 Sodium 143 (137-145) mmol/L Potassium 3.2 L D (3.6-5.0) mmol/L Chloride 105.0 (98-107) mmol/L Carbon Dioxide 25 (22-30) mmol/L BUN 3 L (9-20) mg/dL Creatinine 0.6 L (0.8-1.5) mg/dL Glucose 138 H (75-100) mg/dL Calcium 7.6 L (8.4-10.2) mg/dL Adrenal panel 04/24/17 Range/Units 06:10 Sodium 143 (137-145) mmol/L Potassium 3.2 L D (3.6-5.0) mmol/L Chloride 105.0 (98-107) mmol/L Carbon Dioxide 25 (22-30) mmol/L BUN 3 L (9-20) mg/dL Creatinine 0.6 L (0.8-1.5) mg/dL Glucose 138 H (75-100) mg/dL Calcium 7.6 L (8.4-10.2) mg/dL Total Bilirubin 1.10 (0.1-1.2) mg/dL AST 46 H (5-40) units/L ALT 24 (7-56) units/L Alkaline Phosphatase 56 (35-129) units/L Total Protein 5.2 L (6.3-8.2) g/dL Albumin 3.4 L (3.9-5) g/dL
--- NOTE | 2017-04-24 10:37 | Progress Note ---
Assessment and Plan Assessment and plan: Patient is 76-year-old man with history of hypertension, dyslipidemia, arthritis , COPD, BPH, self bladder catheterization 2 weeks, severe chronic low back pain status post 4 back surgeries with a nonfunctional stimulator implantated in his back and tobacco dependency who presents with right lower side abdominal pains and prior nausea vomiting. Apr 01, 2017, Dr. Roach did bladder bx to remove polyp, noncancerous per family. Patient started experience n/v and RLQ abd pains and went to see Dr. Roach yesterday. CTap ordered. Dr. Roach called his cell phone and told him to go to ED because of his gallbladder. Patient being treated for acute cholecystitis. On exam, RLQ +mann sign and very tender; therefore, I cancelled all oral medications, pt should be strict NPO. Which I changed oral clonazepam to iv ativan for anxiety, Stopped oral methadone/baclofen/prozac/lyrica/oxycodone, pt already on iv morphine. Await surgery recommendation. Continue iv abx and bowel rest, ivf. 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 Abdominal ultrasound report is cholelithiasis, gallbladder wall thickening. 6 mm, there is no pericholecystic fluid, there is a mass in the gallbladder wall measuring 2.3 cm, this could be sludge or irregular polyp, neoplasm cannot be excluded, common bowel duct measures 7.5 mm in diameter. -Acute gallstone cholecystitis: Treat with IV antibiotics, IV fluids, IV narcotics, bowel rest, general surgery is following -UTI, present on admission with self-catheterization and recent surgery: Treat with IV antibiotics, urine culture ordered===>E. 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 Surgeon is following 04/22/2017: pancytopenia most likely from iv zosyn, can switch to levaquin or rocephin. Moderate risk and ok from internal medicine standpoint to proceed with Cholecystectomy d/w Dr. Dm Stanton, whom I placed on consult. 04/23/2017: Surgery today. Echo ordered since 04/21/17, cardiology to review==> Procedure: 1. Diagnostic laparotomy 2. Open cholecystectomy, EBL 1000 s/p 2 units of prbc. Patient was extubated in OR and when he got to PACU, he was re- intubated. I spoke with Dr. Rose, ABG reviewed, Ventilator rate increased and he remained intubated overnight and in PACU waiting on ICU bed. 04/24/2017: Doing well, extubated this morning, I spoke with Dr. Rose and spoke with Dr. Kim at bedside, ok for monitored bed, npo except for meds per Dr. Kim. History Interval history: Patient was seen and examined. Follow-up on abdominal pains. Overnight uneventful. Patient denies any chest pain, shortness breath, nausea/vomiting or severe headaches. Imaging, nursing note, chart, labs and old chart reviewed. Discussed with patient. Patient currently located in postoperative and was just extubated this morning. Hospitalist Physical - Physical exam Narrative exam: GEN: WDWN, NAD, AWAKE, ALERT, ORIENTATED 3 HEENT: NCAT, EOMI, PERRL, OP Clear NECK: supple, no adenopathy, no thyromegaly, no JVD CVS/HEART: Regular bradycardia NORMAL S1S2, NO JVD, pulses present bilaterally CHEST/LUNGS: CTA B, Symmetrical chest expansion, good air entry bilaterally GI/Abdomen: soft, diffuse tenderness, TOYA drain in place, positive bowel sounds /Bladder: no suprapubic tenderness, no CVA or paraspinal tenderness EXT/Skin: no c/c/e, no obvious rash MSK: FROM x 4 Neuro: CN 2-12 grossly intact, no new focal deficits Psych: calm - Constitutional Vitals: Temp Pulse Resp BP Pulse Ox 98.3 F 52 L 29 H 143/54 96 04/24/17 09:00 04/24/17 09:35 04/24/17 09:35 04/24/17 09:35 04/24/17 09:35 Results - Labs CBC & Chem 7: 04/24/17 06:10 04/24/17 06:10 Labs: Laboratory Last Values WBC 7.0 K/mm3 (4.5-11.0) 04/24/17 06:10 RBC 3.49 M/mm3 (3.65-5.03) L 04/24/17 06:10 Hgb 11.2 gm/dl (11.8-15.2) L 04/24/17 06:10 Hct 32.7 % (35.5-45.6) L 04/24/17 06:10 MCV 94 fl (84-94) 04/24/17 06:10 MCH 32 pg (28-32) 04/24/17 06:10 MCHC 34 % (32-34) 04/24/17 06:10 RDW 13.9 % (13.2-15.2) 04/24/17 06:10 Plt Count 124 K/mm3 (140-440) L 04/24/17 06:10 Lymph % (Auto) 10.7 % (13.4-35.0) L 04/24/17 06:10 [place] % (Auto) 8.4 % (0.0-7.3) H 04/24/17 06:10 Eos % (Auto) 0.9 % (0.0-4.3) 04/24/17 06:10 Baso % (Auto) 0.3 % (0.0-1.8) 04/24/17 06:10 Lymph # 0.7 K/mm3 (1.2-5.4) L 04/24/17 06:10 [place] # 0.6 K/mm3 (0.0-0.8) 04/24/17 06:10 Eos # 0.1 K/mm3 (0.0-0.4) 04/24/17 06:10 Baso # 0.0 K/mm3 (0.0-0.1) 04/24/17 06:10 Seg Neutrophils % 79.7 % (40.0-70.0) H 04/24/17 06:10 Seg Neutrophils # 5.5 K/mm3 (1.8-7.7) 04/24/17 06:10 POC ABG pH 7.421 (7.35-7.45) 04/24/17 04:40 POC ABG pCO2 35.6 (35-45) 04/24/17 04:40 POC ABG pO2 82 (80-105) 04/24/17 04:40 POC ABG HCO3 23.1 04/24/17 04:40 POC ABG Total CO2 24 04/24/17 04:40 POC ABG O2 Sat 96 04/24/17 04:40 POC ABG Base Excess -1 04/24/17 04:40 FiO2 30 % 04/24/17 04:40 Sodium 143 mmol/L (137-145) 04/24/17 06:10 Potassium 3.2 mmol/L (3.6-5.0) L D 04/24/17 06:10 Chloride 105.0 mmol/L (98-107) 04/24/17 06:10 Carbon Dioxide 25 mmol/L (22-30) 04/24/17 06:10 Anion Gap 16 mmol/L 04/24/17 06:10 BUN 3 mg/dL (9-20) L 04/24/17 06:10 Creatinine 0.6 mg/dL (0.8-1.5) L 04/24/17 06:10 Estimated GFR > 60 ml/min 04/24/17 06:10 BUN/Creatinine Ratio 5 % 04/24/17 06:10 Glucose 138 mg/dL (75-100) H 04/24/17 06:10 Hemoglobin A1c 5.4 % (4-6) 04/19/17 06:48 Calcium 7.6 mg/dL (8.4-10.2) L 04/24/17 06:10 Total Bilirubin 1.10 mg/dL (0.1-1.2) 04/24/17 06:10 AST 46 units/L (5-40) H 04/24/17 06:10 ALT 24 units/L (7-56) 04/24/17 06:10 Alkaline Phosphatase 56 units/L (35-129) 04/24/17 06:10 Total Protein 5.2 g/dL (6.3-8.2) L 04/24/17 06:10 Albumin 3.4 g/dL (3.9-5) L 04/24/17 06:10 Albumin/Globulin Ratio 1.9 % 04/24/17 06:10 Triglycerides 86 mg/dL (2-149) 04/19/17 06:48 Cholesterol 123 mg/dL (50-199) 04/19/17 06:48 LDL Cholesterol Direct 71 mg/dL (50-130) 04/19/17 06:48 HDL Cholesterol 35 mg/dL (40-59) L 04/19/17 06:48 Cholesterol/HDL Ratio 3.51 % 04/19/17 06:48 Amylase 42 units/L (27-131) 04/20/17 03:45 Lipase 24 units/L (13-60) 04/20/17 03:45 Urine Color Gale (Yellow) 04/19/17 00:48 Urine Turbidity Slightly-cloudy (Clear) 04/19/17 00:48 Urine pH 5.0 (5.0-7.0) 04/19/17 00:48 Ur Specific [place] 1.021 (1.003-1.030) 04/19/17 00:48 Urine Protein 30 mg/dl mg/dL (Negative) 04/19/17 00:48 Urine Glucose (UA) Neg mg/dL (Negative) 04/19/17 00:48 Urine Ketones Neg mg/dL (Negative) 04/19/17 00:48 Urine Blood Lg (Negative) 04/19/17 00:48 Urine Nitrite Neg (Negative) 04/19/17 00:48 Urine Bilirubin Neg (Negative) 04/19/17 00:48 Urine Urobilinogen < 2.0 mg/dL (<2.0) 04/19/17 00:48 Ur Leukocyte Esterase Lg (Negative) 04/19/17 00:48 Urine WBC (Auto) > 182.0 /HPF (0.0-6.0) H 04/19/17 00:48 Urine RBC (Auto) 23.0 /HPF (0.0-6.0) 04/19/17 00:48 Urine Mucus 3+ /HPF 12/29/17 00:48 Blood Type O POSITIVE 04/23/17 15:20 Antibody Screen Negative 04/23/17 15:20 Crossmatch See Detail 04/23/17 15:20
[2017-04-24] MEDS ORDERED: D5/0.45NS 1,000 ML with KCL 20 MEQ IV SCH (11:00)
[2017-04-24] MEDS: PROzac PO SCH ×2 (11:00→13:07)
[2017-04-24] MEDS ORDERED: ZOFRAN IV PRN (11:00)
--- NOTE | 2017-04-24 11:09 | Consultation ---
History of Present Illness Consult date: 04/24/17 Requesting physician: ANIVAL BLAND Reason for consult: other (Post Op ventilator management, acute respiratory failure) History of present illness: 76 y/o male with acute cholecystitis status post surgery, extubated in OR but then re-intubated in PACU. Pulmonary consulted for management. Patient intubated, sedation off. Following commands. Past History Past Medical History: arthritis, COPD, hypertension, other ( high cholesterol. "BLOOD CLOT ON BRAIN", Prostate with polyps, BPH, stones, self cath for 2 weeks) Past Surgical History: Other (Hip BILATERAL. BACK SURGERY X 4. TONSILLECTOMY) Social history: smoking, full code. denies: alcohol abuse Family history: no significant family history Medications and Allergies Allergies Allergy/AdvReac Type Severity Reaction Status Date / Time No Known Allergies Allergy Verified 12/01/14 13:51 Home Medications Medication Instructions Recorded Confirmed Last Taken Type Baclofen [Lioresal] 10 mg PO BID 08/14/13 04/19/17 04/01/17 History clonazePAM [KlonoPIN] 1 mg PO TID 08/14/13 04/19/17 04/01/17 History Methadone [Dolophine] 10 mg PO BID #20 tablet 06/13/15 04/19/17 04/01/17 Rx Oxycodone HCl/Acetaminophen 1 each PO Q8HR PRN #30 tablet 06/13/15 04/19/1703/08 Rx [Percocet 10/325 mg] traZODone [Desyrel] 100 mg PO QHS #20 tablet 06/13/15 04/19/17 04/01/17 Rx FLUoxetine HCL [Fluoxetine HCl] 40 mg PO DAILY 03/28/17 04/19/17 03/31/17 History Pregabalin [Lyrica] 75 mg PO BID 03/28/17 04/19/17 04/01/17 History fentaNYL [Fentanyl] 1 dose INTRADERMA Q72HR 03/28/17 04/19/17 04/01/17 History Active Meds: Active Medications Albuterol (Proventil) 2.5 mg IH Q3HRT PRN PRN Reason: Shortness Of Breath Baclofen (Lioresal) 10 mg PO BID GEENA Last Admin: 04/24/17 02:45 Dose: Not Given Clonazepam (Klonopin) 1 mg PO TID [facility] Last Admin: 04/24/17 10:57 Dose: 1 mg Fentanyl (Duragesic) 75 mcg TD Q72HR [facility] Last Admin: 04/19/17 11:37 Dose: 75 mcg Fluoxetine HCl (Prozac) 40 mg PO QDAY [facility] Last Admin: 04/24/17 11:00 Dose: 40 mg Piperacillin Sod/Tazobactam Sod (Zosyn/Ns 4.5gm/100ml) 4.5 gm in 100 mls @ 200 mls/hr IV Q8HR [facility] PRN Reason: Protocol Last Admin: 04/24/17 06:00 Dose: 200 mls/hr Potassium Chloride/Dextrose/Sod Cl (D5w/0.45% Nacl/Kcl 20 Meq) 20 meq in 1,000 mls @ 100 mls/hr IV DIRECT [facility] Morphine Sulfate (Morphine) 2 mg IV Q3H PRN PRN Reason: Pain, Moderate (4-6) Ondansetron HCl (Zofran) 4 mg IV Q4H PRN PRN Reason: Nausea And Vomiting Oxycodone/Acetaminophen (Percocet 5/325) 2 tab PO Q6H PRN PRN Reason: Pain , Severe (7-10) Last Admin: 04/23/17 10:56 Dose: 2 tab Pantoprazole Sodium (Protonix) 40 mg PO QDAY [facility] Polyethylene Glycol (Miralax 3350) 17 gm PO QDAY PRN PRN Reason: Constipation Pregabalin (Lyrica) 75 mg PO BID [facility] Last Admin: 04/24/17 02:45 Dose: Not Given Review of Systems ROS unobtainable: due to endotracheal tube Physical Examination Vital signs: Vital Signs Temp Pulse Resp BP Pulse Ox 98 F 78 18 114/63 97 04/18/17 17:20 04/18/17 17:20 04/18/17 17:20 04/18/17 17:20 04/18/17 17:20 General appearance: no acute distress, alert ENT: other (orally intubated, not sedated) Neck: supple Effort: normal Ascultation: Bilateral: clear Percussion: Bilateral: not dull Cardiovascular: regular rate and rhythm Gastrointestinal: other (post op changes to abdomen area) Extremities: no cyanosis, no edema Musculoskeletal: no deformities normal mental status, non-focal exam Results - Laboratory Findings CBC and BMP: 04/24/17 06:10 04/24/17 06:10 ABG POC ABG pH 7.421 (7.35-7.45) 04/24/17 04:40 POC ABG pCO2 35.6 (35-45) 04/24/17 04:40 POC ABG pO2 82 (80-105) 04/24/17 04:40 POC ABG HCO3 23.1 04/24/17 04:40 POC ABG Total CO2 24 04/24/17 04:40 POC ABG O2 Sat 96 04/24/17 04:40 Abnormal lab findings: Abnormal Labs 04/18/17 04/18/17 04/19/17 17:59 17:59 00:48 WBC RBC Hgb Hct MCV 97 H MCH 33 H Plt Count 135 L Lymph % (Auto) [place] % (Auto) 7.6 H Lymph # Seg Neutrophils % POC ABG pH POC ABG pCO2 POC ABG pO2 Potassium Chloride 94.8 L BUN Creatinine 0.7 L Glucose 108 H Calcium Total Bilirubin 1.50 H AST Total Protein Albumin HDL Cholesterol Urine WBC (Auto) > 182.0 H Crossmatch 04/19/17 04/19/17 04/20/17 06:48 06:48 03:45 WBC 4.4 L RBC 3.64 L Hgb Hct MCV 99 H 98 H MCH 33 H Plt Count 107 L 124 L Lymph % (Auto) [place] % (Auto) 10.6 H 7.4 H Lymph # Seg Neutrophils % POC ABG pH POC ABG pCO2 POC ABG pO2 Potassium Chloride BUN Creatinine Glucose Calcium Total Bilirubin 1.70 H AST Total Protein Albumin 3.3 L HDL Cholesterol 35 L Urine WBC (Auto) Crossmatch 04/20/17 04/21/17 04/21/17 03:45 05:09 05:09 WBC 3.7 L RBC 3.41 L Hgb 11.3 L Hct 33.5 L MCV 98 H MCH 33 H Plt Count 106 L Lymph % (Auto) [place] % (Auto) Lymph # Seg Neutrophils % POC ABG pH POC ABG pCO2 POC ABG pO2 Potassium Chloride 107.7 H BUN 6 L Creatinine 0.7 L 0.7 L Glucose 122 H Calcium 8.1 L 8.0 L Total Bilirubin AST Total Protein 6.0 L Albumin 2.9 L HDL Cholesterol Urine WBC (Auto) Crossmatch 04/23/17 04/23/17 04/23/17 15:20 17:23 20:17 WBC RBC Hgb Hct MCV MCH Plt Count Lymph % (Auto) [place] % (Auto) Lymph # Seg Neutrophils % POC ABG pH 7.277 L 7.317 L POC ABG pCO2 51.9 H POC ABG pO2 121 H 233 H Potassium Chloride BUN Creatinine Glucose Calcium Total Bilirubin AST Total Protein Albumin HDL Cholesterol Urine WBC (Auto) Crossmatch See Detail 04/23/17 04/24/17 04/24/17 21:30 06:10 06:10 WBC RBC 3.53 L 3.49 L Hgb 11.1 L 11.2 L Hct 33.3 L 32.7 L MCV MCH Plt Count 122 L 124 L Lymph % (Auto) 10.7 L [place] % (Auto) 8.4 H Lymph # 0.7 L Seg Neutrophils % 79.7 H POC ABG pH POC ABG pCO2 POC ABG pO2 Potassium 3.2 L D Chloride BUN 3 L Creatinine 0.6 L Glucose 138 H Calcium 7.6 L Total Bilirubin AST 46 H Total Protein 5.2 L Albumin 3.4 L HDL Cholesterol Urine WBC (Auto) Crossmatch - Diagnostic Findings Chest x-ray: image reviewed (chronic interstital changes, nothing acute) Assessment and Plan 76 y/o male with acute cholecysitis, status post open cholecystectomy with post- op respiratory failure requiring re-intubation in the PACU 1. Will attempt extubation this am 2. If stable, transfer out to surgical floor 3. Wean FiO2 to nasal cannula and assess from there 4. All others per primary team and surgery Thank you for this consult. Will continue to follow along with you. CCT 31minutes
--- NOTE | 2017-04-24 11:13 | Progress Note ---
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 Continue current management. Will see PRN. The patient has been seen in conjunction with Dr. Ashton who agrees with the assessment and plan of care. Subjective Date of service: 04/24/17 Principal diagnosis: pre-op evaluation, sinus bradycardia Interval history: The patient is seen and examined in the PACU. No new complaints. Sinus bradycardia with HR 50s on the monitor. Objective Last Vital Signs Temp 98.3 F 04/24/17 09:00 Pulse 51 L 04/24/17 10:00 Resp 24 04/24/17 10:00 BP 162/61 04/24/17 10:00 Pulse Ox 100 04/24/17 10:00 - Physical Examination General: No Apparent Distress HEENT: Positive: Normocephaly, Mucus Membranes Moist Neck: Positive: neck supple, trachea midline Cardiac: Positive: Reg Rate and Rhythm, S1/S2 Lungs: Positive: clear to auscultation Neuro: Positive: Grossly Intact Abdomen: Positive: Soft Skin: Positive: Clear. Negative: Rash Extremities: Present: normal. Absent: edema - Labs and Meds Cardiac Enzymes 04/24/17 Range/Units 06:10 AST 46 H (5-40) units/L CBC 04/23/17 04/24/17 Range/Units 21:30 06:10 WBC 9.0 7.0 (4.5-11.0) K/mm3 RBC 3.53 L 3.49 L (3.65-5.03) M/mm3 Hgb 11.1 L 11.2 L (11.8-15.2) gm/dl Hct 33.3 L 32.7 L (35.5-45.6) % Plt Count 122 L 124 L (140-440) K/mm3 Lymph # 0.7 L (1.2-5.4) K/mm3 [place] # 0.6 (0.0-0.8) K/mm3 Eos # 0.1 (0.0-0.4) K/mm3 Baso # 0.0 (0.0-0.1) K/mm3 Comprehensive Metabolic Panel 04/24/17 Range/Units 06:10 Sodium 143 (137-145) mmol/L Potassium 3.2 L D (3.6-5.0) mmol/L Chloride 105.0 (98-107) mmol/L Carbon Dioxide 25 (22-30) mmol/L BUN 3 L (9-20) mg/dL Creatinine 0.6 L (0.8-1.5) mg/dL Glucose 138 H (75-100) mg/dL Calcium 7.6 L (8.4-10.2) mg/dL AST 46 H (5-40) units/L ALT 24 (7-56) units/L Alkaline Phosphatase 56 (35-129) units/L Total Protein 5.2 L (6.3-8.2) g/dL Albumin 3.4 L (3.9-5) g/dL - Imaging and Cardiology Echo: report reviewed (04/2017: EF 55-60%) - Telemetry EKG Rhythm: Sinus Bradycardia
[2017-04-24] MEDS: PERCOCET 5/325 PO PRN (13:38)
[2017-04-24] MEDS: D5W/0.45% NACL/KCL 20 MEQ 20 MEQ/1,000 ML BAG IV SCH (15:09)
[2017-04-25] MEDS: MORPHINE IV PRN ×2 (02:03→06:20)
[2017-04-25] MEDS: D5W/0.45% NACL/KCL 20 MEQ 20 MEQ/1,000 ML BAG IV SCH ×2 (02:03→23:35)
[2017-04-25] MEDS: ZOSYN/NS 4.5GM/100ML 4.5 GM/100 ML VIAL IV SCH ×3 (06:20→23:34)
[2017-04-25 06:24] LABS: Basophils % (Auto) 0.5 % (0.0-1.8); Eosinophils # (Auto) 0.1 K/mm3 (0.0-0.4); Eosinophils % (Auto) 1.1 % (0.0-4.3); Hematocrit 28.3 % (35.5-45.6); Hemoglobin 9.7 gm/dl (11.8-15.2); Lymphocytes # (Auto) 1.1 K/mm3 (1.2-5.4); Lymphocytes % (Auto) 15.8 % (13.4-35.0); Mean Corpuscular HGB Conc 34 % (32-34); Mean Corpuscular Hemoglobin 32 pg (28-32); Mean Corpuscular Volume 94 fl (84-94); Monocytes # (Auto) 0.7 K/mm3 (0.0-0.8); Monocytes % (Auto) 10.8 % (0.0-7.3); Platelet Count 130 K/mm3 (140-440); Red Blood Count 3.01 M/mm3 (3.65-5.03); Red Cell Distribution Width 14.5 % (13.2-15.2)
[2017-04-25] MEDS: PROzac PO SCH (10:00)
[2017-04-25] MEDS: LYRICA PO SCH ×2 (10:32→21:52)
[2017-04-25] MEDS: PROTONIX PO SCH (10:32)
[2017-04-25] MEDS: LIORESAL PO SCH ×2 (10:32→21:52)
--- NOTE | 2017-04-25 11:17 | Progress Note ---
Assessment and Plan POD # 2 Pt feeling well. no compl. Abd soft. dressings dry. hypoactive BS stable attempt cl liq diet continue monitoring h/h ambulation as keith Selected Entries 04/25/17 07:15 Temperature 98.6 F Pulse Rate 60 Respiratory 20 Rate Blood Pressure 160/57 [Left] Laboratory Tests 04/24/17 04/24/17 04/25/17 06:10 06:10 05:40 WBC 6.9 Hgb 11.2 L 9.7 L Hct 32.7 L 28.3 L Potassium 3.2 L D Objective Vital Signs - 12hr 04/25/17 04/25/17 04/25/17 01:17 05:32 05:33 Temperature 98.9 F 98.9 F Pulse Rate 60 68 69 Respiratory 20 20 Rate Blood Pressure 170/69 168/62 Blood Pressure [Left] O2 Sat by Pulse 94 89 89 Oximetry 04/25/17 04/25/17 07:14 07:15 Temperature 98.6 F Pulse Rate 64 60 Respiratory 20 Rate Blood Pressure Blood Pressure 160/57 [Left] O2 Sat by Pulse 88 87 Oximetry - Labs 04/25/17 05:40 04/24/17 06:10
--- NOTE | 2017-04-25 15:11 | Progress Note ---
Assessment and Plan 76 y/o male with acute cholecysitis, status post open cholecystectomy with post- op respiratory failure requiring re-intubation in the PACU 1. Pulm status is stable. Will sign off Subjective Date of service: 04/25/17 Principal diagnosis: pre-op evaluation, sinus bradycardia Interval history: No acute events. Breathing is stable. Objective Vital Signs - 12hr 04/25/17 04/25/17 04/25/17 05:32 05:33 07:14 Temperature 98.9 F Pulse Rate 68 69 64 Respiratory 20 Rate Blood Pressure 168/62 Blood Pressure [Left] O2 Sat by Pulse 89 89 88 Oximetry 04/25/17 04/25/17 04/25/17 07:15 11:27 11:37 Temperature 98.6 F 98.0 F Pulse Rate 60 57 L 56 L Respiratory 20 18 Rate Blood Pressure Blood Pressure 160/57 151/56 [Left] O2 Sat by Pulse 87 87 86 Oximetry Constitutional: no acute distress, alert ENT: other (orally intubated, not sedated) Neck: supple Effort: normal Ascultation: Bilateral: clear Percussion: Bilateral: not dull Cardiovascular: regular rate and rhythm Gastrointestinal: other (post op changes to abdomen area) Extremities: no cyanosis, no edema Neurologic: normal mental status, non-focal exam CBC and BMP: 04/25/17 05:40 04/24/17 06:10 ABG, PT/INR, D-dimer: ABG POC ABG pH 7.421 (7.35-7.45) 04/24/17 04:40 POC ABG pCO2 35.6 (35-45) 04/24/17 04:40 POC ABG pO2 82 (80-105) 04/24/17 04:40 POC ABG HCO3 23.1 04/24/17 04:40 POC ABG Total CO2 24 04/24/17 04:40 POC ABG O2 Sat 96 04/24/17 04:40 Abnormal lab findings: Abnormal Labs 04/18/17 04/18/17 04/19/17 17:59 17:59 00:48 WBC RBC Hgb Hct MCV 97 H MCH 33 H Plt Count 135 L Lymph % (Auto) [place] % (Auto) 7.6 H Lymph # Seg Neutrophils % POC ABG pH POC ABG pCO2 POC ABG pO2 Potassium Chloride 94.8 L BUN Creatinine 0.7 L Glucose 108 H Calcium Total Bilirubin 1.50 H AST Total Protein Albumin HDL Cholesterol Urine WBC (Auto) > 182.0 H Crossmatch 04/19/17 04/19/17 04/20/17 06:48 06:48 03:45 WBC 4.4 L RBC 3.64 L Hgb Hct MCV 99 H 98 H MCH 33 H Plt Count 107 L 124 L Lymph % (Auto) [place] % (Auto) 10.6 H 7.4 H Lymph # Seg Neutrophils % POC ABG pH POC ABG pCO2 POC ABG pO2 Potassium Chloride BUN Creatinine Glucose Calcium Total Bilirubin 1.70 H AST Total Protein Albumin 3.3 L HDL Cholesterol 35 L Urine WBC (Auto) Crossmatch 04/20/17 04/21/17 04/21/17 03:45 05:09 05:09 WBC 3.7 L RBC 3.41 L Hgb 11.3 L Hct 33.5 L MCV 98 H MCH 33 H Plt Count 106 L Lymph % (Auto) [place] % (Auto) Lymph # Seg Neutrophils % POC ABG pH POC ABG pCO2 POC ABG pO2 Potassium Chloride 107.7 H BUN 6 L Creatinine 0.7 L 0.7 L Glucose 122 H Calcium 8.1 L 8.0 L Total Bilirubin AST Total Protein 6.0 L Albumin 2.9 L HDL Cholesterol Urine WBC (Auto) Crossmatch 04/23/17 04/23/17 04/23/17 15:20 17:23 20:17 WBC RBC Hgb Hct MCV MCH Plt Count Lymph % (Auto) [place] % (Auto) Lymph # Seg Neutrophils % POC ABG pH 7.277 L 7.317 L POC ABG pCO2 51.9 H POC ABG pO2 121 H 233 H Potassium Chloride BUN Creatinine Glucose Calcium Total Bilirubin AST Total Protein Albumin HDL Cholesterol Urine WBC (Auto) Crossmatch See Detail 04/23/17 04/24/17 04/24/17 21:30 06:10 06:10 WBC RBC 3.53 L 3.49 L Hgb 11.1 L 11.2 L Hct 33.3 L 32.7 L MCV MCH Plt Count 122 L 124 L Lymph % (Auto) 10.7 L [place] % (Auto) 8.4 H Lymph # 0.7 L Seg Neutrophils % 79.7 H POC ABG pH POC ABG pCO2 POC ABG pO2 Potassium 3.2 L D Chloride BUN 3 L Creatinine 0.6 L Glucose 138 H Calcium 7.6 L Total Bilirubin AST 46 H Total Protein 5.2 L Albumin 3.4 L HDL Cholesterol Urine WBC (Auto) Crossmatch 04/25/17 05:40 WBC RBC 3.01 L Hgb 9.7 L Hct 28.3 L MCV MCH Plt Count 130 L Lymph % (Auto) [place] % (Auto) 10.8 H Lymph # 1.1 L Seg Neutrophils % 71.8 H POC ABG pH POC ABG pCO2 POC ABG pO2 Potassium Chloride BUN Creatinine Glucose Calcium Total Bilirubin AST Total Protein Albumin HDL Cholesterol Urine WBC (Auto) Crossmatch
[2017-04-25] MEDS: PERCOCET 5/325 PO PRN ×2 (15:21→20:17)
[2017-04-25] MEDS ORDERED: POTASSIUM CHLORIDE PO ONE (16:09)
--- NOTE | 2017-04-25 16:10 | Progress Note ---
Assessment and Plan Assessment and plan: Patient is 76-year-old man with history of hypertension, dyslipidemia, arthritis , COPD, BPH, self bladder catheterization 2 weeks, severe chronic low back pain status post 4 back surgeries with a nonfunctional stimulator implantated in his back and tobacco dependency who presents with right lower side abdominal pains and prior nausea vomiting. Apr 01, 2017, Dr. Roach did bladder bx to remove polyp, noncancerous per family. Patient started experience n/v and RLQ abd pains and went to see Dr. Roach yesterday. CTap ordered. Dr. Roach called his cell phone and told him to go to ED because of his gallbladder. Patient being treated for acute cholecystitis. On exam, RLQ +mann sign and very tender; therefore, I cancelled all oral medications, pt should be strict NPO. Which I changed oral clonazepam to iv ativan for anxiety, Stopped oral methadone/baclofen/prozac/lyrica/oxycodone, pt already on iv morphine. Await surgery recommendation. Continue iv abx and bowel rest, ivf. 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 Abdominal ultrasound report is cholelithiasis, gallbladder wall thickening. 6 mm, there is no pericholecystic fluid, there is a mass in the gallbladder wall measuring 2.3 cm, this could be sludge or irregular polyp, neoplasm cannot be excluded, common bowel duct measures 7.5 mm in diameter. -Acute gallstone cholecystitis: Treat with IV antibiotics, IV fluids, IV narcotics, bowel rest, general surgery is following -UTI, present on admission with self-catheterization and recent surgery: Treat with IV antibiotics, urine culture ordered===>E. 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 Surgeon is following 04/22/2017: pancytopenia most likely from iv zosyn, can switch to levaquin or rocephin. Moderate risk and ok from internal medicine standpoint to proceed with Cholecystectomy d/w Dr. Dm Stanton, whom I placed on consult. 04/23/2017: Surgery today. Echo ordered since 04/21/17, cardiology to review==> Procedure: 1. Diagnostic laparotomy 2. Open cholecystectomy, EBL 1000 s/p 2 units of prbc. Patient was extubated in OR and when he got to PACU, he was re- intubated. I spoke with Dr. Rose, ABG reviewed, Ventilator rate increased and he remained intubated overnight and in PACU waiting on ICU bed. 04/24/2017: Doing well, extubated this morning, I spoke with Dr. Rose and spoke with Dr. Kim at bedside, ok for monitored bed, npo except for meds per Dr. Kim. 04/25/2017: Hypokalemia, he is currently on d5 a/2ns with potassium, give oral potassium liquid and will recheck potassium in am. History Interval history: Patient was seen and examined. Follow-up on abdominal pains. Overnight uneventful. Patient denies any chest pain, shortness breath, nausea/vomiting or severe headaches. Imaging, nursing note, chart, labs and old chart reviewed. Discussed with patient. Tolerated medications with liquids Hospitalist Physical - Physical exam Narrative exam: GEN: WDWN, NAD, AWAKE, ALERT, ORIENTATED 3 HEENT: NCAT, EOMI, PERRL, OP Clear NECK: supple, no adenopathy, no thyromegaly, no JVD CVS/HEART: Regular bradycardia NORMAL S1S2, NO JVD, pulses present bilaterally CHEST/LUNGS: CTA B, Symmetrical chest expansion, good air entry bilaterally GI/Abdomen: soft, diffuse tenderness, TOYA drain in place, positive bowel sounds /Bladder: no suprapubic tenderness, no CVA or paraspinal tenderness EXT/Skin: no c/c/e, no obvious rash MSK: FROM x 4 Neuro: CN 2-12 grossly intact, no new focal deficits Psych: calm - Constitutional Vitals: Temp Pulse Resp BP Pulse Ox 98.0 F 56 L 18 151/56 86 04/25/17 11:37 04/25/17 11:37 04/25/17 11:37 04/25/17 11:37 04/25/17 11:37 Results - Labs CBC & Chem 7: 04/25/17 05:40 04/24/17 06:10 Labs: Laboratory Last Values WBC 6.9 K/mm3 (4.5-11.0) 04/25/17 05:40 RBC 3.01 M/mm3 (3.65-5.03) L 04/25/17 05:40 Hgb 9.7 gm/dl (11.8-15.2) L 04/25/17 05:40 Hct 28.3 % (35.5-45.6) L 04/25/17 05:40 MCV 94 fl (84-94) 04/25/17 05:40 MCH 32 pg (28-32) 04/25/17 05:40 MCHC 34 % (32-34) 04/25/17 05:40 RDW 14.5 % (13.2-15.2) 04/25/17 05:40 Plt Count 130 K/mm3 (140-440) L 04/25/17 05:40 Lymph % (Auto) 15.8 % (13.4-35.0) 04/25/17 05:40 [place] % (Auto) 10.8 % (0.0-7.3) H 04/25/17 05:40 Eos % (Auto) 1.1 % (0.0-4.3) 04/25/17 05:40 Baso % (Auto) 0.5 % (0.0-1.8) 04/25/17 05:40 Lymph # 1.1 K/mm3 (1.2-5.4) L 04/25/17 05:40 [place] # 0.7 K/mm3 (0.0-0.8) 04/25/17 05:40 Eos # 0.1 K/mm3 (0.0-0.4) 04/25/17 05:40 Baso # 0.0 K/mm3 (0.0-0.1) 04/25/17 05:40 Seg Neutrophils % 71.8 % (40.0-70.0) H 04/25/17 05:40 Seg Neutrophils # 5.0 K/mm3 (1.8-7.7) 04/25/17 05:40 POC ABG pH 7.421 (7.35-7.45) 04/24/17 04:40 POC ABG pCO2 35.6 (35-45) 04/24/17 04:40 POC ABG pO2 82 (80-105) 04/24/17 04:40 POC ABG HCO3 23.1 04/24/17 04:40 POC ABG Total CO2 24 04/24/17 04:40 POC ABG O2 Sat 96 04/24/17 04:40 POC ABG Base Excess -1 04/24/17 04:40 FiO2 30 % 04/24/17 04:40 Sodium 143 mmol/L (137-145) 04/24/17 06:10 Potassium 3.2 mmol/L (3.6-5.0) L D 04/24/17 06:10 Chloride 105.0 mmol/L (98-107) 04/24/17 06:10 Carbon Dioxide 25 mmol/L (22-30) 04/24/17 06:10 Anion Gap 16 mmol/L 04/24/17 06:10 BUN 3 mg/dL (9-20) L 04/24/17 06:10 Creatinine 0.6 mg/dL (0.8-1.5) L 04/24/17 06:10 Estimated GFR > 60 ml/min 04/24/17 06:10 BUN/Creatinine Ratio 5 % 04/24/17 06:10 Glucose 138 mg/dL (75-100) H 04/24/17 06:10 Hemoglobin A1c 5.4 % (4-6) 04/19/17 06:48 Calcium 7.6 mg/dL (8.4-10.2) L 04/24/17 06:10 Total Bilirubin 1.10 mg/dL (0.1-1.2) 04/24/17 06:10 AST 46 units/L (5-40) H 04/24/17 06:10 ALT 24 units/L (7-56) 04/24/17 06:10 Alkaline Phosphatase 56 units/L (35-129) 04/24/17 06:10 Total Protein 5.2 g/dL (6.3-8.2) L 04/24/17 06:10 Albumin 3.4 g/dL (3.9-5) L 04/24/17 06:10 Albumin/Globulin Ratio 1.9 % 04/24/17 06:10 Triglycerides 86 mg/dL (2-149) 04/19/17 06:48 Cholesterol 123 mg/dL (50-199) 04/19/17 06:48 LDL Cholesterol Direct 71 mg/dL (50-130) 04/19/17 06:48 HDL Cholesterol 35 mg/dL (40-59) L 04/19/17 06:48 Cholesterol/HDL Ratio 3.51 % 04/19/17 06:48 Amylase 42 units/L (27-131) 04/20/17 03:45 Lipase 24 units/L (13-60) 04/20/17 03:45 Urine Color Gale (Yellow) 04/19/17 00:48 Urine Turbidity Slightly-cloudy (Clear) 04/19/17 00:48 Urine pH 5.0 (5.0-7.0) 04/19/17 00:48 Ur Specific [place] 1.021 (1.003-1.030) 04/19/17 00:48 Urine Protein 30 mg/dl mg/dL (Negative) 04/19/17 00:48 Urine Glucose (UA) Neg mg/dL (Negative) 04/19/17 00:48 Urine Ketones Neg mg/dL (Negative) 04/19/17 00:48 Urine Blood Lg (Negative) 04/19/17 00:48 Urine Nitrite Neg (Negative) 04/19/17 00:48 Urine Bilirubin Neg (Negative) 04/19/17 00:48 Urine Urobilinogen < 2.0 mg/dL (<2.0) 04/19/17 00:48 Ur Leukocyte Esterase Lg (Negative) 04/19/17 00:48 Urine WBC (Auto) > 182.0 /HPF (0.0-6.0) H 04/19/17 00:48 Urine RBC (Auto) 23.0 /HPF (0.0-6.0) 04/19/17 00:48 Urine Mucus 3+ /HPF 04/19/17 00:48 Blood Type O POSITIVE 04/23/17 15:20 Antibody Screen Negative 04/23/17 15:20 Crossmatch See Detail 04/23/17 15:20
[2017-04-26] MEDS: PERCOCET 5/325 PO PRN ×2 (01:42→06:48)
[2017-04-26] MEDS: ZOSYN/NS 4.5GM/100ML 4.5 GM/100 ML VIAL IV SCH ×3 (06:50→21:38)
[2017-04-26 08:11] LABS: Basophils % (Auto) 0.7 % (0.0-1.8); Eosinophils # (Auto) 0.2 K/mm3 (0.0-0.4); Eosinophils % (Auto) 3.2 % (0.0-4.3); Hematocrit 26.7 % (35.5-45.6); Hemoglobin 9.1 gm/dl (11.8-15.2); Lymphocytes # (Auto) 1.3 K/mm3 (1.2-5.4); Lymphocytes % (Auto) 20.3 % (13.4-35.0); Mean Corpuscular HGB Conc 34 % (32-34); Mean Corpuscular Hemoglobin 32 pg (28-32); Mean Corpuscular Volume 95 fl (84-94); Monocytes # (Auto) 0.5 K/mm3 (0.0-0.8); Monocytes % (Auto) 8.2 % (0.0-7.3); Platelet Count 122 K/mm3 (140-440); Red Blood Count 2.82 M/mm3 (3.65-5.03); Red Cell Distribution Width 14.8 % (13.2-15.2)
[2017-04-26 08:14] LABS: BUN/Creatinine Ratio 6; Blood Urea Nitrogen 5 mg/dL (9-20); Calcium 7.7 mg/dL (8.4-10.2); Hemolysis Index 0
[2017-04-26] MEDS: LIORESAL PO SCH ×2 (09:36→21:38)
[2017-04-26] MEDS: LYRICA PO SCH ×2 (09:36→21:38)
[2017-04-26] MEDS: PROTONIX PO SCH (09:37)
[2017-04-26] MEDS: PROzac PO SCH (09:37)
[2017-04-26] MEDS: D5W/0.45% NACL/KCL 20 MEQ 20 MEQ/1,000 ML BAG IV SCH ×2 (09:39→22:59)
--- NOTE | 2017-04-26 13:01 | Progress Note ---
Assessment and Plan Assessment and plan: Patient is 76-year-old man with history of hypertension, dyslipidemia, arthritis , COPD, BPH, self bladder catheterization 2 weeks, severe chronic low back pain status post 4 back surgeries with a nonfunctional stimulator implantated in his back and tobacco dependency who presents with right lower side abdominal pains and prior nausea vomiting. Apr 01, 2017, Dr. Roach did bladder bx to remove polyp, noncancerous per family. Patient started experience n/v and RLQ abd pains and went to see Dr. Roach yesterday. CTap ordered. Dr. Roach called his cell phone and told him to go to ED because of his gallbladder. Patient being treated for acute cholecystitis. On exam, RLQ +mann sign and very tender; therefore, I cancelled all oral medications, pt should be strict NPO. Which I changed oral clonazepam to iv ativan for anxiety, Stopped oral methadone/baclofen/prozac/lyrica/oxycodone, pt already on iv morphine. Await surgery recommendation. Continue iv abx and bowel rest, ivf. 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 Abdominal ultrasound report is cholelithiasis, gallbladder wall thickening. 6 mm, there is no pericholecystic fluid, there is a mass in the gallbladder wall measuring 2.3 cm, this could be sludge or irregular polyp, neoplasm cannot be excluded, common bowel duct measures 7.5 mm in diameter. -Acute gallstone cholecystitis: Treat with IV antibiotics, IV fluids, IV narcotics, bowel rest, general surgery is following -UTI, present on admission with self-catheterization and recent surgery: Treat with IV antibiotics, urine culture ordered===>E. 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 Surgeon is following 04/22/2017: pancytopenia most likely from iv zosyn, can switch to levaquin or rocephin. Moderate risk and ok from internal medicine standpoint to proceed with Cholecystectomy d/w Dr. Dm Stanton, whom I placed on consult. 04/23/2017: Surgery today. Echo ordered since 04/21/17, cardiology to review==> Procedure: 1. Diagnostic laparotomy 2. Open cholecystectomy, EBL 1000 s/p 2 units of prbc. Patient was extubated in OR and when he got to PACU, he was re- intubated. I spoke with Dr. Rose, ABG reviewed, Ventilator rate increased and he remained intubated overnight and in PACU waiting on ICU bed. 04/24/2017: Doing well, extubated this morning, I spoke with Dr. Rose and spoke with Dr. Kim at bedside, ok for monitored bed, npo except for meds per Dr. Kim. 04/25/2017: Hypokalemia, he is currently on d5 a/2ns with potassium, give oral potassium liquid and will recheck potassium in am. 04/26/2017: suspect Cancer of the gallbladder, consulted heme/onc History Interval history: Patient was seen and examined. Follow-up on abdominal pains. Overnight uneventful. Patient denies any chest pain, shortness breath, nausea/vomiting or severe headaches. Imaging, nursing note, chart, labs and old chart reviewed. Discussed with patient. Tolerated medications with liquids Hospitalist Physical - Physical exam Narrative exam: GEN: WDWN, NAD, AWAKE, ALERT, ORIENTATED 3 HEENT: NCAT, EOMI, PERRL, OP Clear NECK: supple, no adenopathy, no thyromegaly, no JVD CVS/HEART: Regular bradycardia NORMAL S1S2, NO JVD, pulses present bilaterally CHEST/LUNGS: CTA B, Symmetrical chest expansion, good air entry bilaterally GI/Abdomen: soft, diffuse tenderness, TOYA drain in place, positive bowel sounds /Bladder: no suprapubic tenderness, no CVA or paraspinal tenderness EXT/Skin: no c/c/e, no obvious rash MSK: FROM x 4 Neuro: CN 2-12 grossly intact, no new focal deficits Psych: calm - Constitutional Vitals: Temp Pulse Resp BP Pulse Ox 97.7 F 52 L 18 156/58 95 04/26/17 08:00 04/26/17 08:00 04/26/17 10:23 04/26/17 08:00 04/26/17 08:00 Results - Labs CBC & Chem 7: 04/26/17 07:40 04/26/17 07:40 Labs: Laboratory Last Values WBC 6.3 K/mm3 (4.5-11.0) 04/26/17 07:40 RBC 2.82 M/mm3 (3.65-5.03) L 04/26/17 07:40 Hgb 9.1 gm/dl (11.8-15.2) L 04/26/17 07:40 Hct 26.7 % (35.5-45.6) L 04/26/17 07:40 MCV 95 fl (84-94) H 04/26/17 07:40 MCH 32 pg (28-32) 04/26/17 07:40 MCHC 34 % (32-34) 04/26/17 07:40 RDW 14.8 % (13.2-15.2) 04/26/17 07:40 Plt Count 122 K/mm3 (140-440) L 04/26/17 07:40 Lymph % (Auto) 20.3 % (13.4-35.0) 04/26/17 07:40 [place] % (Auto) 8.2 % (0.0-7.3) H 04/26/17 07:40 Eos % (Auto) 3.2 % (0.0-4.3) 04/26/17 07:40 Baso % (Auto) 0.7 % (0.0-1.8) 04/26/17 07:40 Lymph # 1.3 K/mm3 (1.2-5.4) 04/26/17 07:40 [place] # 0.5 K/mm3 (0.0-0.8) 04/26/17 07:40 Eos # 0.2 K/mm3 (0.0-0.4) 04/26/17 07:40 Baso # 0.0 K/mm3 (0.0-0.1) 04/26/17 07:40 Seg Neutrophils % 67.6 % (40.0-70.0) 04/26/17 07:40 Seg Neutrophils # 4.2 K/mm3 (1.8-7.7) 04/26/17 07:40 POC ABG pH 7.421 (7.35-7.45) 04/24/17 04:40 POC ABG pCO2 35.6 (35-45) 04/24/17 04:40 POC ABG pO2 82 (80-105) 04/24/17 04:40 POC ABG HCO3 23.1 04/24/17 04:40 POC ABG Total CO2 24 04/24/17 04:40 POC ABG O2 Sat 96 04/24/17 04:40 POC ABG Base Excess -1 04/24/17 04:40 FiO2 30 % 04/24/17 04:40 Sodium 144 mmol/L (137-145) 04/26/17 07:40 Potassium 4.1 mmol/L (3.6-5.0) D 04/26/17 07:40 Chloride 106.7 mmol/L (98-107) 04/26/17 07:40 Carbon Dioxide 27 mmol/L (22-30) 04/26/17 07:40 Anion Gap 14 mmol/L 04/26/17 07:40 BUN 5 mg/dL (9-20) L 04/26/17 07:40 Creatinine 0.8 mg/dL (0.8-1.5) 04/26/17 07:40 Estimated GFR > 60 ml/min 04/26/17 07:40 BUN/Creatinine Ratio 6 % 04/26/17 07:40 Glucose 103 mg/dL (75-100) H 04/26/17 07:40 Hemoglobin A1c 5.4 % (4-6) 04/19/17 06:48 Calcium 7.7 mg/dL (8.4-10.2) L 04/26/17 07:40 Total Bilirubin 1.10 mg/dL (0.1-1.2) 04/24/17 06:10 AST 46 units/L (5-40) H 04/24/17 06:10 ALT 24 units/L (7-56) 04/24/17 06:10 Alkaline Phosphatase 56 units/L (35-129) 04/24/17 06:10 Total Protein 5.2 g/dL (6.3-8.2) L 04/24/17 06:10 Albumin 3.4 g/dL (3.9-5) L 04/24/17 06:10 Albumin/Globulin Ratio 1.9 % 04/24/17 06:10 Triglycerides 86 mg/dL (2-149) 04/19/17 06:48 Cholesterol 123 mg/dL (50-199) 04/19/17 06:48 LDL Cholesterol Direct 71 mg/dL (50-130) 04/19/17 06:48 HDL Cholesterol 35 mg/dL (40-59) L 04/19/17 06:48 Cholesterol/HDL Ratio 3.51 % 04/19/17 06:48 Amylase 42 units/L (27-131) 04/20/17 03:45 Lipase 24 units/L (13-60) 04/20/17 03:45 Urine Color Gale (Yellow) 04/19/17 00:48 Urine Turbidity Slightly-cloudy (Clear) 04/19/17 00:48 Urine pH 5.0 (5.0-7.0) 04/19/17 00:48 Ur Specific [place] 1.021 (1.003-1.030) 04/19/17 00:48 Urine Protein 30 mg/dl mg/dL (Negative) 04/19/17 00:48 Urine Glucose (UA) Neg mg/dL (Negative) 04/19/17 00:48 Urine Ketones Neg mg/dL (Negative) 04/19/17 00:48 Urine Blood Lg (Negative) 04/19/17 00:48 Urine Nitrite Neg (Negative) 04/19/17 00:48 Urine Bilirubin Neg (Negative) 04/19/17 00:48 Urine Urobilinogen < 2.0 mg/dL (<2.0) 04/19/17 00:48 Ur Leukocyte Esterase Lg (Negative) 04/19/17 00:48 Urine WBC (Auto) > 182.0 /HPF (0.0-6.0) H 04/19/17 00:48 Urine RBC (Auto) 23.0 /HPF (0.0-6.0) 04/19/17 00:48 Urine Mucus 3+ /HPF 04/19/17 00:48 Blood Type O POSITIVE 04/23/17 15:20 Antibody Screen Negative 04/23/17 15:20 Crossmatch See Detail 04/23/17 15:20
--- NOTE | 2017-04-26 13:02 | Consultation ---
REFERRING PHYSICIAN: Dr. Rocael Kim. REASON FOR CONSULTATION: Gallbladder cancer. HISTORY OF PRESENT ILLNESS: The patient is a 76-year-old male with multiple medical problems including significant for back COPD, chronic back pain, on pain stimulator methadone, baclofen and oxycodone who presented to the hospital with abdominal pain. He had recently had a urinary bladder biopsy and continued to have the pain after that. On the CT of the abdomen was found to have evidence of cholecystitis. He was admitted to the hospital and underwent surgery for gallbladder. 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 One incidental lymph node has been negative. There is perineural invasion. There is some grade 3 malignancy. Oncology consult was called. The patient's daughter states that he has lost about 10 to 20 pounds. He does smoke cigarettes, just quit while he came to the hospital. He denies any previous history of malignancy. He has had multiple back surgeries and is pain medication dependent. PAST MEDICAL HISTORY: Otherwise, unremarkable except for COPD, hypertension, arthritis. He has had a blood clot in the brain removed. He has also had prostate polyps, benign prostatic hypertrophy. He has evidence of urinary retention requiring self-catheterization. PHYSICAL EXAMINATION: GENERAL: The patient is currently drowsy from medication. HEENT: Unremarkable. CHEST: Clear. CARDIOVASCULAR: Regular rate and rhythm. ABDOMEN: Has a right-sided abdominal incision. EXTREMITIES: Has no clubbing, cyanosis or edema. LABORATORY DATA: The patient's hemoglobin is 9.1; white count 6.3; platelets 122,000. ASSESSMENT: 1. Gallbladder malignancy, awaiting final pathology. 2. Anemia, possibly secondary to recent surgery. 3. Thrombocytopenia. PLAN: At this time will follow up on the final path. We will also order a CT of the chest to conclude the workup for metastatic disease. I will hold off on bone scan especially since he has had a lot of back surgeries and may end up doing a PET scan as outpatient. We will do anemia workup. We will follow up. Card to the daughter was given to follow up in my office on discharge. JOB# [id number] S/NTS
--- NOTE | 2017-04-26 13:28 | Progress Note ---
Assessment and Plan POD # 3 Pt feeling well. no compl. keith cl liq diet Abd soft. path - GB adenoca awaiting onc eval surgically stable low fat full liq diet Selected Entries 04/26/17 08:00 Temperature 97.7 F Pulse Rate 52 L Respiratory 18 Rate Blood Pressure 156/58 [Left] Laboratory Tests 04/25/17 04/26/17 05:40 07:40 WBC 6.3 Hgb 9.7 L 9.1 L Hct 28.3 L 26.7 L Objective Vital Signs - 12hr 04/26/17 04/26/17 04/26/17 01:42 02:42 05:24 Temperature 98.3 F Pulse Rate 54 L Respiratory 20 16 16 Rate Respiratory Rate [Right Abdomen] Blood Pressure 151/60 Blood Pressure [Left] O2 Sat by Pulse 84 Oximetry 04/26/17 04/26/17 04/26/17 06:48 07:48 08:00 Temperature 97.7 F Pulse Rate 52 L Respiratory 20 20 18 Rate Respiratory Rate [Right Abdomen] Blood Pressure Blood Pressure 156/58 [Left] O2 Sat by Pulse 95 Oximetry 04/26/17 10:23 Temperature Pulse Rate Respiratory Rate Respiratory 18 Rate [Right Abdomen] Blood Pressure Blood Pressure [Left] O2 Sat by Pulse Oximetry - Labs 04/26/17 07:40 04/26/17 07:40 Diabetes panel 04/26/17 Range/Units 07:40 Sodium 144 (137-145) mmol/L Potassium 4.1 D (3.6-5.0) mmol/L Chloride 106.7 (98-107) mmol/L Carbon Dioxide 27 (22-30) mmol/L BUN 5 L (9-20) mg/dL Creatinine 0.8 (0.8-1.5) mg/dL Glucose 103 H (75-100) mg/dL Calcium 7.7 L (8.4-10.2) mg/dL Calcium panel 04/26/17 Range/Units 07:40 Calcium 7.7 L (8.4-10.2) mg/dL Pituitary panel 04/26/17 Range/Units 07:40 Sodium 144 (137-145) mmol/L Potassium 4.1 D (3.6-5.0) mmol/L Chloride 106.7 (98-107) mmol/L Carbon Dioxide 27 (22-30) mmol/L BUN 5 L (9-20) mg/dL Creatinine 0.8 (0.8-1.5) mg/dL Glucose 103 H (75-100) mg/dL Calcium 7.7 L (8.4-10.2) mg/dL Adrenal panel 04/26/17 Range/Units 07:40 Sodium 144 (137-145) mmol/L Potassium 4.1 D (3.6-5.0) mmol/L Chloride 106.7 (98-107) mmol/L Carbon Dioxide 27 (22-30) mmol/L BUN 5 L (9-20) mg/dL Creatinine 0.8 (0.8-1.5) mg/dL Glucose 103 H (75-100) mg/dL Calcium 7.7 L (8.4-10.2) mg/dL
--- NOTE | 2017-04-26 14:28 | Cat Scan Report ---
CT scan of chest with IV contrast: History: Gallbladder cancer. Findings: No endobronchial or mediastinal mass. No, hilar or axillary adenopathy. No pericardial effusion. Moderate right-sided pleural effusion with basilar atelectasis. Emphysematous changes bilaterally. Minimal left pleural effusion with left basilar atelectasis. No consolidation. Impression: Emphysematous changes bilaterally. Moderate right pleural effusion with minimal left pleural effusion with adjacent bilateral basilar atelectasis. No consolidation.
[2017-04-26 17:59] LABS: Iron 36 ug/dL (49-181); Total Iron Binding Capacity 148 mcg/dL (250-450)
[2017-04-26] MEDS: MORPHINE IV PRN (20:03)
[2017-04-27] MEDS: MORPHINE IV PRN ×3 (01:26→21:36)
[2017-04-27] MEDS: PERCOCET 5/325 PO PRN ×4 (01:30→18:00)
[2017-04-27] MEDS: ZOSYN/NS 4.5GM/100ML 4.5 GM/100 ML VIAL IV SCH ×3 (05:25→21:33)
[2017-04-27] MEDS: LIORESAL PO SCH ×2 (11:00→21:33)
[2017-04-27] MEDS: PROTONIX PO SCH (11:00)
[2017-04-27] MEDS: LYRICA PO SCH ×2 (11:00→21:33)
[2017-04-27] MEDS: PROzac PO SCH (11:00)
--- NOTE | 2017-04-27 12:31 | Progress Note ---
Assessment and Plan POD # 4 Pt feeling well. keith full liq Abd soft. incision clean & dry. onc eval appreciated. slight pleural effusion on CT (as per pulm) surgically stable d/c TOYA advance to solid low fat diet add Fe f/u cbc in am Selected Entries 04/27/17 04/27/17 07:20 07:21 Temperature 98.9 F Pulse Rate 53 L Respiratory 18 Rate Blood Pressure 181/58 [Left] Objective Vital Signs - 12hr 04/27/17 04/27/17 04/27/17 05:26 07:20 07:21 Temperature 98.9 F 98.9 F Pulse Rate 56 L 51 L 53 L Respiratory 20 18 Rate Blood Pressure 149/56 Blood Pressure 181/58 [Left] O2 Sat by Pulse 91 92 92 Oximetry - Labs 04/26/17 07:40 04/26/17 07:40
--- NOTE | 2017-04-27 13:14 | Progress Note ---
Assessment and Plan Assessment and plan: Patient is 76-year-old man with history of hypertension, dyslipidemia, arthritis , COPD, BPH, self bladder catheterization 2 weeks, severe chronic low back pain status post 4 back surgeries with a nonfunctional stimulator implantated in his back and tobacco dependency who presents with right lower side abdominal pains and prior nausea vomiting. Apr 01, 2017, Dr. Roach did bladder bx to remove polyp, noncancerous per family. Patient started experience n/v and RLQ abd pains and went to see Dr. Roach yesterday. CTap ordered. Dr. Roach called his cell phone and told him to go to ED because of his gallbladder. Patient being treated for acute cholecystitis. On exam, RLQ +mann sign and very tender; therefore, I cancelled all oral medications, pt should be strict NPO. Which I changed oral clonazepam to iv ativan for anxiety, Stopped oral methadone/baclofen/prozac/lyrica/oxycodone, pt already on iv morphine. Await surgery recommendation. Continue iv abx and bowel rest, ivf. 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 Abdominal ultrasound report is cholelithiasis, gallbladder wall thickening. 6 mm, there is no pericholecystic fluid, there is a mass in the gallbladder wall measuring 2.3 cm, this could be sludge or irregular polyp, neoplasm cannot be excluded, common bowel duct measures 7.5 mm in diameter. -Acute gallstone cholecystitis: Treat with IV antibiotics, IV fluids, IV narcotics, bowel rest, general surgery is following -UTI, present on admission with self-catheterization and recent surgery: Treat with IV antibiotics, urine culture ordered===>E. 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 Surgeon is following 04/22/2017: pancytopenia most likely from iv zosyn, can switch to levaquin or rocephin. Moderate risk and ok from internal medicine standpoint to proceed with Cholecystectomy d/w Dr. Dm Stanton, whom I placed on consult. 04/23/2017: Surgery today. Echo ordered since 04/21/17, cardiology to review==> Procedure: 1. Diagnostic laparotomy 2. Open cholecystectomy, EBL 1000 s/p 2 units of prbc. Patient was extubated in OR and when he got to PACU, he was re- intubated. I spoke with Dr. Rose, ABG reviewed, Ventilator rate increased and he remained intubated overnight and in PACU waiting on ICU bed. 04/24/2017: Doing well, extubated this morning, I spoke with Dr. Rose and spoke with Dr. Kim at bedside, ok for monitored bed, npo except for meds per Dr. Kim. 04/25/2017: Hypokalemia, he is currently on d5 a/2ns with potassium, give oral potassium liquid and will recheck potassium in am. 04/26/2017: suspect Cancer of the gallbladder, consulted heme/onc 04/27/2017: advance diet, d/w surgeon Dr. Kim History Interval history: Patient was seen and examined. Follow-up on abdominal pains. Overnight uneventful. Patient denies any chest pain, shortness breath, nausea/vomiting or severe headaches. Imaging, nursing note, chart, labs and old chart reviewed. Discussed with patient. Tolerated medications with liquids Hospitalist Physical - Physical exam Narrative exam: GEN: WDWN, NAD, AWAKE, ALERT, ORIENTATED 3 HEENT: NCAT, EOMI, PERRL, OP Clear NECK: supple, no adenopathy, no thyromegaly, no JVD CVS/HEART: Regular bradycardia NORMAL S1S2, NO JVD, pulses present bilaterally CHEST/LUNGS: CTA B, Symmetrical chest expansion, good air entry bilaterally GI/Abdomen: soft, diffuse tenderness, TOYA drain in place, positive bowel sounds /Bladder: no suprapubic tenderness, no CVA or paraspinal tenderness EXT/Skin: no c/c/e, no obvious rash MSK: FROM x 4 Neuro: CN 2-12 grossly intact, no new focal deficits Psych: calm - Constitutional Vitals: Temp Pulse Resp BP Pulse Ox 98.2 F 53 L 20 165/55 92 04/27/17 12:34 04/27/17 12:34 04/27/17 12:34 04/27/17 12:34 04/27/17 12:34 Results - Labs CBC & Chem 7: 04/26/17 07:40 04/26/17 07:40 Labs: Laboratory Last Values WBC 6.3 K/mm3 (4.5-11.0) 04/26/17 07:40 RBC 2.82 M/mm3 (3.65-5.03) L 04/26/17 07:40 Hgb 9.1 gm/dl (11.8-15.2) L 04/26/17 07:40 Hct 26.7 % (35.5-45.6) L 04/26/17 07:40 MCV 95 fl (84-94) H 04/26/17 07:40 MCH 32 pg (28-32) 04/26/17 07:40 MCHC 34 % (32-34) 04/26/17 07:40 RDW 14.8 % (13.2-15.2) 04/26/17 07:40 Plt Count 122 K/mm3 (140-440) L 04/26/17 07:40 Lymph % (Auto) 20.3 % (13.4-35.0) 04/26/17 07:40 [place] % (Auto) 8.2 % (0.0-7.3) H 04/26/17 07:40 Eos % (Auto) 3.2 % (0.0-4.3) 04/26/17 07:40 Baso % (Auto) 0.7 % (0.0-1.8) 04/26/17 07:40 Lymph # 1.3 K/mm3 (1.2-5.4) 04/26/17 07:40 [place] # 0.5 K/mm3 (0.0-0.8) 04/26/17 07:40 Eos # 0.2 K/mm3 (0.0-0.4) 04/26/17 07:40 Baso # 0.0 K/mm3 (0.0-0.1) 04/26/17 07:40 Seg Neutrophils % 67.6 % (40.0-70.0) 04/26/17 07:40 Seg Neutrophils # 4.2 K/mm3 (1.8-7.7) 04/26/17 07:40 POC ABG pH 7.421 (7.35-7.45) 04/24/17 04:40 POC ABG pCO2 35.6 (35-45) 04/24/17 04:40 POC ABG pO2 82 (80-105) 04/24/17 04:40 POC ABG HCO3 23.1 04/24/17 04:40 POC ABG Total CO2 24 04/24/17 04:40 POC ABG O2 Sat 96 04/24/17 04:40 POC ABG Base Excess -1 04/24/17 04:40 FiO2 30 % 04/24/17 04:40 Sodium 144 mmol/L (137-145) 04/26/17 07:40 Potassium 4.1 mmol/L (3.6-5.0) D 04/26/17 07:40 Chloride 106.7 mmol/L (98-107) 04/26/17 07:40 Carbon Dioxide 27 mmol/L (22-30) 04/26/17 07:40 Anion Gap 14 mmol/L 04/26/17 07:40 BUN 5 mg/dL (9-20) L 04/26/17 07:40 Creatinine 0.8 mg/dL (0.8-1.5) 04/26/17 07:40 Estimated GFR > 60 ml/min 04/26/17 07:40 BUN/Creatinine Ratio 6 % 04/26/17 07:40 Glucose 103 mg/dL (75-100) H 04/26/17 07:40 Hemoglobin A1c 5.4 % (4-6) 04/19/17 06:48 Calcium 7.7 mg/dL (8.4-10.2) L 04/26/17 07:40 Iron 36 ug/dL (49-181) L 04/26/17 Unknown TIBC 148 mcg/dL (250-450) L 04/26/17 Unknown Ferritin 168.3 ng/mL (13.0-400.0) 04/26/17 Unknown Total Bilirubin 1.10 mg/dL (0.1-1.2) 04/24/17 06:10 AST 46 units/L (5-40) H 04/24/17 06:10 ALT 24 units/L (7-56) 04/24/17 06:10 Alkaline Phosphatase 56 units/L (35-129) 04/24/17 06:10 Total Protein 5.2 g/dL (6.3-8.2) L 04/24/17 06:10 Albumin 3.4 g/dL (3.9-5) L 04/24/17 06:10 Albumin/Globulin Ratio 1.9 % 04/24/17 06:10 Triglycerides 86 mg/dL (2-149) 04/19/17 06:48 Cholesterol 123 mg/dL (50-199) 04/19/17 06:48 LDL Cholesterol Direct 71 mg/dL (50-130) 04/19/17 06:48 HDL Cholesterol 35 mg/dL (40-59) L 04/19/17 06:48 Cholesterol/HDL Ratio 3.51 % 04/19/17 06:48 Amylase 42 units/L (27-131) 04/20/17 03:45 Lipase 24 units/L (13-60) 04/20/17 03:45 Vitamin B12 251.5 pg/mL (211-911) 04/26/17 Unknown Folate 4.69 ng/mL (7.3-26.0) L 04/26/17 Unknown Urine Color Gale (Yellow) 04/19/17 00:48 Urine Turbidity Slightly-cloudy (Clear) 04/19/17 00:48 Urine pH 5.0 (5.0-7.0) 04/19/17 00:48 Ur Specific [place] 1.021 (1.003-1.030) 04/19/17 00:48 Urine Protein 30 mg/dl mg/dL (Negative) 04/19/17 00:48 Urine Glucose (UA) Neg mg/dL (Negative) 04/19/17 00:48 Urine Ketones Neg mg/dL (Negative) 04/19/17 00:48 Urine Blood Lg (Negative) 04/19/17 00:48 Urine Nitrite Neg (Negative) 04/19/17 00:48 Urine Bilirubin Neg (Negative) 04/19/17 00:48 Urine Urobilinogen < 2.0 mg/dL (<2.0) 04/19/17 00:48 Ur Leukocyte Esterase Lg (Negative) 04/19/17 00:48 Urine WBC (Auto) > 182.0 /HPF (0.0-6.0) H 04/19/17 00:48 Urine RBC (Auto) 23.0 /HPF (0.0-6.0) 04/19/17 00:48 Urine Mucus 3+ /HPF 04/19/17 00:48 Blood Type O POSITIVE 04/23/17 15:20 Antibody Screen Negative 04/23/17 15:20 Crossmatch See Detail 04/23/17 15:20
--- NOTE | 2017-04-27 13:51 | Hem/Onc Progress Note ---
Subjective Date of service: 04/27/17 Interval history: Patient doing well post-operatively. He is encouraged to ambulate. CT chest does not show any evidence of mets Objective - Constitutional Vitals: Last Vital Signs Temp 98.2 F 04/27/17 12:34 Pulse 53 L 04/27/17 12:34 Resp 20 04/27/17 12:34 BP 165/55 04/27/17 12:34 Pulse Ox 92 04/27/17 12:34 Pain Intensity (0-10): 0/10 General appearance: no acute distress, mild distress - EENT Eyes: PERRL, EOM intact - Neck Neck: supple, normal ROM - Respiratory Respiratory effort: Positive: normal Respiratory: bilateral: CTA - Cardiovascular Rhythm: regular Extremities: no ischemia, No edema - Gastrointestinal General gastrointestinal: Present: non-distended - Labs Lab Results: Laboratory Results - last 24 hr 04/26/17 04/26/17 04/26/17 Unknown Unknown Unknown Iron 36 L TIBC 148 L Ferritin 168.3 Vitamin B12 251.5 Folate 04/26/17 Unknown Iron TIBC Ferritin Vitamin B12 Folate 4.69 L
[2017-04-27] MEDS: THERAGRAN-M Tab PO SCH (18:07)
[2017-04-27] MEDS: FEOSOL PO SCH ×2 (18:07→21:33)
[2017-04-28] MEDS: MORPHINE IV PRN ×2 (00:28→05:13)
[2017-04-28] MEDS: PERCOCET 5/325 PO PRN ×3 (00:28→10:44)
[2017-04-28] MEDS: ZOSYN/NS 4.5GM/100ML 4.5 GM/100 ML VIAL IV SCH (05:14)
--- NOTE | 2017-04-28 09:35 | Progress Note ---
Assessment and Plan Pt feeling well without compl. keith solid diet Abd soft. non tender. incision clean & dry surgically stable may d/c from surg perspective. rto I wk. will also need f/u onc appt. I will also make arrangements for f/u in [place] with Dr. Rubio to asses possible need for hepatic wedge resection. Objective Vital Signs - 12hr 04/28/17 04/28/17 04/28/17 05:54 05:59 08:04 Temperature 98.5 F Pulse Rate 50 L 49 L Respiratory 18 Rate Blood Pressure 181/67 Blood Pressure [Left] O2 Sat by Pulse 92 95 Oximetry 04/28/17 08:46 Temperature 98.1 F Pulse Rate 53 L Respiratory 18 Rate Blood Pressure Blood Pressure 171/63 [Left] O2 Sat by Pulse Oximetry - Labs 04/26/17 07:40 04/26/17 07:40
[2017-04-28 10:06] LABS: Basophils % (Auto) 0.6 % (0.0-1.8); Eosinophils # (Auto) 0.2 K/mm3 (0.0-0.4); Eosinophils % (Auto) 4.7 % (0.0-4.3); Hematocrit 28.4 % (35.5-45.6); Hemoglobin 9.4 gm/dl (11.8-15.2); Lymphocytes # (Auto) 1.2 K/mm3 (1.2-5.4); Lymphocytes % (Auto) 23.5 % (13.4-35.0); Mean Corpuscular HGB Conc 33 % (32-34); Mean Corpuscular Hemoglobin 31 pg (28-32); Mean Corpuscular Volume 95 fl (84-94); Monocytes # (Auto) 0.4 K/mm3 (0.0-0.8); Monocytes % (Auto) 7.7 % (0.0-7.3); Platelet Count 141 K/mm3 (140-440); Red Blood Count 2.99 M/mm3 (3.65-5.03); Red Cell Distribution Width 14.7 % (13.2-15.2)
[2017-04-28] MEDS: FEOSOL PO SCH (12:06)
[2017-04-28] MEDS: THERAGRAN-M Tab PO SCH (12:06)
[2017-04-28] MEDS: LIORESAL PO SCH (12:07)
[2017-04-28] MEDS: PROzac PO SCH (12:07)
[2017-04-28] MEDS: LYRICA PO SCH (12:07)
[2017-04-28] MEDS: PROTONIX PO SCH (12:11)
--- NOTE | 2017-04-28 12:31 | Discharge Summary ---
Providers - Providers Date of Admission: 04/19/17 06:24 Date of discharge: 04/28/17 Attending physician: ANIVAL BLAND 04/25/17 14:14 Consult to Physician [CONS] Routine Consulting Provider: LUCI MCLEAN Reason For Exam: Adenocarcinoma of gallbladder Place consult to:: Physician Notified:: Grinding Machine Tender "Gabinorobert" Phone number called:: [phone] Was contact made?: No If yes, spoke with:: Recectionist to lester Mclean Time called:: 14:15 04/19/17 04:28 Consult to Physician [CONS] Urgent Consulting Provider: ISAIAH KIM Reason For Exam: cholecystitis Place consult to:: Dr. Kim Notified:: Answering Service Phone number called:: [phone] Was contact made?: Yes If yes, spoke with:: Dr. Kim Time called:: 04:26 Comment:: Dr. Blake ( dr) spoke with Dr. Kim 04/20/17 11:38 Consult to Physician [CONS] Routine Consulting Provider: NICK CARLSON Reason For Exam: AAA, PAD, occluded iliac Place consult to:: Notified:: Phone number called:: [phone] Was contact made?: Yes If yes, spoke with:: Time called:: 17:16 Comment:: MILA Primary care physician: JEANIE HENNING Hospitalization Condition: Stable Hospital course: Patient is 76-year-old man with history of hypertension, dyslipidemia, arthritis , COPD, BPH, self bladder catheterization 2 weeks, severe chronic low back pain status post 4 back surgeries with a nonfunctional stimulator implantated in his back and tobacco dependency who presents with right lower side abdominal pains and prior nausea vomiting. Apr 01, 2017, Dr. Roach did bladder bx to remove polyp, noncancerous per family. Patient started experience n/v and RLQ abd pains and went to see Dr. Roach yesterday. CTap ordered. Dr. Roach called his cell phone and told him to go to ED because of his gallbladder. Patient being treated for acute cholecystitis. On exam, RLQ +mann sign and very tender; therefore, I cancelled all oral medications, pt should be strict NPO. Which I changed oral clonazepam to iv ativan for anxiety, Stopped oral methadone/baclofen/prozac/lyrica/oxycodone, pt already on iv morphine. Await surgery recommendation. Continue iv abx and bowel rest, ivf. 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 Abdominal ultrasound report is cholelithiasis, gallbladder wall thickening. 6 mm, there is no pericholecystic fluid, there is a mass in the gallbladder wall measuring 2.3 cm, this could be sludge or irregular polyp, neoplasm cannot be excluded, common bowel duct measures 7.5 mm in diameter. -Malignancy of Gallbladder -Acute gallstone cholecystitis: Treat with IV antibiotics, IV fluids, IV narcotics, bowel rest, general surgery is following -UTI, present on admission with self-catheterization and recent surgery: Treat with IV antibiotics, urine culture ordered===>E. 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 Moderate risk and ok from internal medicine standpoint to proceed with Cholecystectomy d/w Dr. Dm Stanton, whom I placed on consult. 04/23/2017: Surgery today. Echo ordered since 04/21/17, cardiology to review==> Procedure: 1. Diagnostic laparotomy 2. Open cholecystectomy, EBL 1000 s/p 2 units of prbc. Patient was extubated in OR and when he got to PACU, he was re- intubated. I spoke with Dr. Rose, ABG reviewed, Ventilator rate increased and he remained intubated overnight and in PACU waiting on ICU bed. 04/24/2017: Doing well, extubated this morning, I spoke with Dr. Rose and spoke with Dr. Kim at bedside, ok for monitored bed, npo except for meds per Dr. Kim. 04/25/2017: Hypokalemia, he is currently on d5 a/2ns with potassium, give oral potassium liquid and will recheck potassium in am. 04/26/2017: suspect Cancer of the gallbladder, consulted heme/onc 04/27/2017: advance diet, d/w surgeon Dr. Kim 04/28/2017: per Dr. Jordan, general surgeon:" Pt feeling well without compl. keith solid diet Abd soft. non tender. incision clean & dry surgically stable may d/c from surg perspective. rto I wk. will also need f/u onc appt. I will also make arrangements for f/u in [place] with Dr. Rubio to asses possible need for hepatic wedge resection." Disposition: DC-01 TO HOME OR SELFCARE Time spent for discharge: 36 minutes Core Measure Documentation - Palliative Care Palliative Care/ Comfort Measures: Not Applicable - Core Measures Any of the following diagnoses?: none - VTE Discharge Requirements Deep Vein Thrombosis/Pulmonary Embolism Present on Admission: No Has pt received <5 days of overlap therapy or INR<2.0: No Anticoagulant overlap therapy prescribed at discharge: No Contraindication No Overlap Therapy order at DC: Not Indicated Exam - Physical Exam Narrative exam: GEN: WDWN, NAD, AWAKE, ALERT, ORIENTATED 3 HEENT: NCAT, EOMI, PERRL, OP Clear NECK: supple, no adenopathy, no thyromegaly, no JVD CVS/HEART: Regular bradycardia NORMAL S1S2, NO JVD, pulses present bilaterally CHEST/LUNGS: CTA B, Symmetrical chest expansion, good air entry bilaterally GI/Abdomen: soft, diffuse tenderness, TOYA drain in place, positive bowel sounds /Bladder: no suprapubic tenderness, no CVA or paraspinal tenderness EXT/Skin: no c/c/e, no obvious rash MSK: FROM x 4 Neuro: CN 2-12 grossly intact, no new focal deficits Psych: calm - Constitutional Vitals: Temp Pulse Resp BP Pulse Ox 98.1 F 53 L 18 171/63 95 04/28/17 08:46 04/28/17 08:46 04/28/17 08:46 04/28/17 08:46 04/28/17 08:04 Plan Activity: up only with assistance, fall precautions Follow up with: JEANIE HENNING MD [Primary Care Provider] - 3-5 Days ISAIAH KIM MD [Staff Physician] - 7 Days LUCI MCLEAN MD [Staff Physician] - 7 Days NICK CARLSON MD [Staff Physician] - 14 Days Prescriptions: Bisacodyl [Dulcolax suppos] 10 mg MS QDAY #15 day Oxycodone HCl/Acetaminophen [Percocet 10/325 mg] 1 each PO Q8HR PRN #30 tablet PRN Reason: Pain fentaNYL [Fentanyl] 1 dose INTRADERMA Q72HR #30 day
--- NOTE | 2017-04-28 13:50 | Hem/Onc Progress Note ---
Subjective Date of service: 04/28/17 Interval history: Patient reports abdominal pain. - Patient also reports cough with some pulmonary congestion If discharged, please f/u with Dr Curry as outpatient Objective - Constitutional Vitals: Last Vital Signs Temp 98.1 F 04/28/17 12:09 Pulse 52 L 04/28/17 12:09 Resp 18 04/28/17 12:09 BP 176/62 04/28/17 12:09 Pulse Ox 95 04/28/17 12:09 Pain Intensity (0-10): 2/10 General appearance: no acute distress - EENT Eyes: PERRL, EOM intact ENT: hearing intact, clear oral mucosa - Neck Neck: supple, normal ROM - Respiratory Respiratory effort: Positive: normal Respiratory: bilateral: rales - Cardiovascular Rhythm: regular Extremities: no ischemia, No edema - Labs Lab Results: Laboratory Results - last 24 hr 04/28/17 09:43 WBC 5.1 RBC 2.99 L Hgb 9.4 L Hct 28.4 L MCV 95 H MCH 31 MCHC 33 RDW 14.7 Plt Count 141 Lymph % (Auto) 23.5 Burt % (Auto) 7.7 H Eos % (Auto) 4.7 H Baso % (Auto) 0.6 Lymph # 1.2 Burt # 0.4 Eos # 0.2 Baso # 0.0 Seg Neutrophils % 63.5 Seg Neutrophils # 3.3
[2017-04-28 17:54] VITALS: BP 168/75
== END 2017-04-28 17:00 | disposition home or self-care (01) | DRG 414 ==
LOC: ED 17:13 → 3A 04-19 06:24 → 2B-ACE 04-19 08:08 → CC1 04-23 17:53 → 3B-SURG 04-24 10:57
PROVIDERS: ADMIT Internal Medicine Geriatric Medicine; ATTEND Internal Medicine
PROC: 0FT40ZZ Resection of Gallbladder, Open Approach (ICD-10-PCS; principal; 2017-04-23)
PROC: 0FJ44ZZ Inspection of Gallbladder, Percutaneous Endoscopic Approach (ICD-10-PCS; 2017-04-23)
PROC: 4A033R1 Measurement of Arterial Saturation, Peripheral, Percutaneous Approach (ICD-10-PCS; 2017-04-23)
PROC: 5A1935Z Respiratory Ventilation, Less than 24 Consecutive Hours (ICD-10-PCS; 2017-04-23)
PROC: 0BH17EZ Insertion of Endotracheal Airway into Trachea, Via Natural or Artificial Opening (ICD-10-PCS; 2017-04-23)
DX: K80.00 Calculus of gallbladder with acute cholecystitis without obstruction (principal); D61.811 Other drug-induced pancytopenia; J95.821 Acute postprocedural respiratory failure; N39.0 Urinary tract infection, site not specified; C23 Malignant neoplasm of gallbladder; I74.5 Embolism and thrombosis of iliac artery; K29.80 Duodenitis without bleeding; J44.9 Chronic obstructive pulmonary disease, unspecified; I71.4 Abdominal aortic aneurysm, without rupture; I10 Essential (primary) hypertension; M19.90 Unspecified osteoarthritis, unspecified site; N40.0 Benign prostatic hyperplasia without lower urinary tract symptoms; G89.29 Other chronic pain; M54.5 Low back pain; F41.9 Anxiety disorder, unspecified; R00.1 Bradycardia, unspecified; I73.9 Peripheral vascular disease, unspecified; T36.0X5A Adverse effect of penicillins, initial encounter; E87.6 Hypokalemia; E80.6 Other disorders of bilirubin metabolism; K59.00 Constipation, unspecified; F17.210 Nicotine dependence, cigarettes, uncomplicated; Y92.89 Other specified places as the place of occurrence of the external cause; Z79.899 Other long term (current) drug therapy; Z71.6 Tobacco abuse counseling
CPT/HCPCS: 36415; 36600; 71045; 71260; 74177; 76705; 80048; 80053; 80061; 81001; 82150; 82607; 82728; 82747; 82803; 83036; 83550; 83690; 85025; 85027; 86850; 86900; 86901; 86920; 87070; 87076; 87086; 87186; 87205; 88304; 93005; 93010; 93306; 94002; 94003; 96365; 96375; A4649; C9113; J0330; J0360; J1170; J1644; J1650; J2270; J2405; J2543; J2704; J3010; J7030; J7040; J7042; J7120; P9016; P9047; Q9967